=== PATIENT | male | born 1965 | race American Indian/Alaskan Native ===

== ENCOUNTER 2016-07-24 09:53 | Inpatient (IN) | payer OTHER ==
[2016-07-24] MEDS ORDERED: COMPAZINE IV ONE (11:18)
[2016-07-24] MEDS ORDERED: CATAPRES PO ONE (11:18)
[2016-07-24] MEDS ORDERED: DILAUDID IV ONE (11:18)
--- NOTE | 2016-07-24 11:21 | Emergency Department Report ---
- General Chief complaint: Weakness Stated complaint: WEAKNESS/DIZZINESS Time Seen by Provider: 07/24/16 10:58 Source: patient, EMS Mode of arrival: Stretcher Limitations: No Limitations - History of Present Illness Initial comments: This is a 51-year-old gentleman who describes essentially a one-month history of frequent headaches. He states they'll be in the posterior lower aspect of his skull. He reports nausea associated with this as well as some nausea and fatigue and weakness. He states it seems to correlate with high blood pressure. He has been compliant with his Tekturna. He states the typically his blood pressures in the 140 over 80s range. He states that when he has the headache he notices the blood pressure quite elevated. He actually took a myocarditis today due to the long pressure being elevated and headache pain. He denies any specific head trauma. She denies any focal neurologic difficulties. He denies any abdominal pain. He was seen by an emergency department in [place] for similar symptoms 2 weeks ago. He will did receive nausea and pain medicine with improvement of his condition. Hemodialysis is Monday. Complaint: generalized weakness -: Gradual Location: neck, other (head) Severity scale (0 -10): 2 Associated Symptoms: denies: chest pain, confusion, dark stools, fever/chills, headaches - Related Data Home Medications Medication Instructions Recorded Confirmed Last Taken Sevelamer Carbonate [Renvela] 800 mg PO TIDWM 07/24/16 07/24/16 Unknown Telmisartan [Micardis] 80 mg PO QDAY 07/24/16 07/24/16 Unknown Allergies Allergy/AdvReac Type Severity Reaction Status Date / Time No Known Allergies Allergy Verified 07/24/16 11:21 ED Review of Systems ROS: Stated complaint: WEAKNESS/DIZZINESS Other details as noted in HPI Comment: All other systems reviewed and negative Constitutional: weakness. denies: chills, fever Eyes: denies: eye pain, eye discharge, vision change ENT: denies: ear pain, throat pain Respiratory: denies: cough, shortness of breath, wheezing Cardiovascular: denies: chest pain, palpitations Endocrine: no symptoms reported Gastrointestinal: nausea. denies: abdominal pain, diarrhea Genitourinary: denies: urgency, dysuria Musculoskeletal: denies: back pain, joint swelling, arthralgia Skin: denies: rash, lesions Neurological: headache, weakness, other (dizziness). denies: numbness, paresthesias Psychiatric: denies: anxiety, depression Hematological/Lymphatic: denies: easy bleeding, easy bruising ED Past Medical Hx - Past Medical History Previous Medical History?: Yes Hx Hypertension: Yes Hx Renal Disease: Yes (RF HD MWF) Additional medical history: LUE HD access - Surgical History Past Surgical History?: Yes Additional Surgical History: Leftg Knee replacement 2010 - Social History Smoking Status: Never Smoker Substance Use Type: None - Medications Home Medications: Home Medications Medication Instructions Recorded Confirmed Last Taken Type Sevelamer Carbonate [Renvela] 800 mg PO TIDWM 07/24/16 07/24/16 Unknown History Telmisartan [Micardis] 80 mg PO QDAY 07/24/16 07/24/16 Unknown History ED Physical Exam - General Limitations: No Limitations General appearance: alert, in no apparent distress - Head Head exam: Present: atraumatic, normocephalic, normal inspection - Eye Eye exam: Present: normal appearance, EOMI, other (2 mm pupils bilaterally they are reactive.) - ENT ENT exam: Present: normal exam, normal orophraynx, mucous membranes moist - Neck Neck exam: Present: tenderness (L paracervical aspect to trapezius. No midline tenderness). Absent: meningismus, full ROM, lymphadenopathy, thyromegaly - Respiratory Respiratory exam: Present: normal lung sounds bilaterally. Absent: respiratory distress, wheezes, rales - Cardiovascular Cardiovascular Exam: Present: regular rate, normal rhythm. Absent: systolic murmur, diastolic murmur, rubs, gallop - GI/Abdominal GI/Abdominal exam: Present: soft, normal bowel sounds. Absent: tenderness, guarding - Rectal Rectal exam: Present: deferred - Extremities Exam Extremities exam: Present: normal inspection, full ROM. Absent: tenderness - Back Exam Back exam: Present: normal inspection, full ROM, tenderness - Neurological Exam Neurological exam: Present: alert, oriented X3, CN II-XII intact. Absent: motor sensory deficit - Psychiatric Psychiatric exam: Present: normal affect, normal mood - Skin Skin exam: Present: warm, dry, intact, normal color. Absent: rash ED Course Vital Signs 07/24/16 07/24/16 07/24/16 10:12 10:22 10:30 Temperature Pulse Rate 90 Respiratory 11 L 24 Rate Blood Pressure 125/86 Blood Pressure 125/86 [Right] O2 Sat by Pulse 97 98 97 Oximetry 07/24/16 07/24/16 07/24/16 11:00 11:30 12:00 Temperature Pulse Rate 82 Respiratory 19 17 12 Rate Blood Pressure 172/95 156/93 142/91 Blood Pressure [Right] O2 Sat by Pulse 93 92 98 Oximetry 07/24/16 07/24/16 07/24/16 12:15 12:31 12:45 Temperature Pulse Rate 112 H 105 H 115 H Respiratory 25 H 17 16 Rate Blood Pressure 142/91 182/84 179/85 Blood Pressure [Right] O2 Sat by Pulse 100 99 Oximetry 07/24/16 07/24/16 07/24/16 13:01 13:05 13:15 Temperature Pulse Rate 107 H 101 H 106 H Respiratory 13 21 Rate Blood Pressure 201/100 201/100 215/104 Blood Pressure [Right] O2 Sat by Pulse 100 98 Oximetry 07/24/16 07/24/16 07/24/16 13:30 13:45 14:00 Temperature Pulse Rate 107 H 104 H 103 H Respiratory 15 15 18 Rate Blood Pressure 165/81 186/97 174/95 Blood Pressure [Right] O2 Sat by Pulse 100 98 99 Oximetry 07/24/16 07/24/16 07/24/16 14:15 14:31 14:52 Temperature Pulse Rate 114 H 113 H 111 H Respiratory 22 24 11 L Rate Blood Pressure 174/95 209/94 209/94 Blood Pressure [Right] O2 Sat by Pulse 90 88 Oximetry 07/24/16 07/24/16 07/24/16 15:00 15:15 15:30 Temperature Pulse Rate Respiratory 17 17 19 Rate Blood Pressure 136/98 151/79 151/79 Blood Pressure [Right] O2 Sat by Pulse 85 96 100 Oximetry 07/24/16 07/24/16 07/24/16 16:11 16:15 16:32 Temperature 100 F H Pulse Rate 110 H 126 H Respiratory 29 H Rate Blood Pressure 190/92 190/92 Blood Pressure [Right] O2 Sat by Pulse 98 96 Oximetry 07/24/16 07/24/16 07/24/16 17:01 18:01 18:39 Temperature 98.5 F Pulse Rate Respiratory Rate Blood Pressure 190/92 156/88 Blood Pressure [Right] O2 Sat by Pulse 96 96 Oximetry - Reevaluation(s) Reevaluation #1: 07/24/16 11:25 Patient is intact neurologically here. Blood pressure is noted to be modestly elevated at 170 over 90s. Etiology of headache seems more likely to be inserted in nature in my opinion. I suspect the blood pressure secondary to pain. We'll give the patient some pain medication as well as check some baseline labs and observed here for brief period of time. Reevaluation #2: 07/24/16 11:50 ECG 1141 demonstrate a normal sinus rhythm at 80 bpm with a normal GA. Isoelectric noted. No acute ST elevation or depression is appreciated. Reevaluation #3: 07/24/16 18:46 This is a patient that I did not anticipate having his much difficulty as I have with. He continues to have challenging headache. He does have a disease/ nausea component to his headache as well. In brief I did provide him IV medications for his headache. I felt controlling the headache would control much of his Lopressor issues well. Patient was given Dilaudid as well as Compazine for his nausea. Patient is a side effect did develop akathisia. I did give him Benadryl post complication. He still remained fairly agitated. I gave Zofran to speak Valium at that time with improvement of the akathisia. Patient still continues to endorse headache. Did offer her other medications she is very reluctant this time to take them due to its adverse reaction with the Compazine. Patient is able to stand up she does slowly walk around the room as well. He is neurologically intact. Moving all extremities appropriately. Does not have an obvious nystagmus at this time. CT brain was obtained demonstrating no acute pathology. Patient did have a bowel movement here with improvement of some gaseous distention he was having. Temperature was noted to be 100.0 several hours after my initial evaluation. In light of his presentation did Biddle depositing consider meningitis. I really have a low suspicion of this but I do not have an alternative diagnosis. CRP is noted to be 5 lactate is 2.1. I'm reluctant at this time to do a lumbar puncture. I feel this is unlikely to give me the etiology of his discomfort. I did speak with Dr. Harris from the hospitalist service regarding admission for continued evaluation and further care. He is comfortable and agreeable with this. ED Medical Decision Making - Lab Data Result diagrams: 07/24/16 11:24 07/24/16 11:24 - Radiology Data Radiology results: report reviewed, image reviewed interpreted by me: CT brain Negative for acute pathology. Critical care attestation.: If time is entered above; I have spent that time in minutes in the direct care of this critically ill patient, excluding procedure time. ED Disposition Clinical Impression: End stage renal disease, Dizziness Headache Qualifiers: Headache type: tension-type Headache chronicity pattern: acute headache Intractability: intractable Qualified Code(s): G44.201 - Tension-type headache, unspecified, intractable HTN (hypertension) Qualifiers: Hypertension type: renovascular hypertension Qualified Code(s): I15.0 - Renovascular hypertension Disposition: OP ADMITTED IP TO THIS HOSP Is pt being admited?: Yes Does the pt Need Aspirin: No Condition: Stable Instructions: Hypertension (ED) Referrals: PRIMARY CARE, [Primary Care Provider] - 3-5 Days Time of Disposition: 16:34
[2016-07-24 11:43] LABS: Basophils % (Auto) 0.4 % (0.0-1.8); Eosinophils % (Auto) 1.5 % (0.0-4.3); Hematocrit 31.9 % (35.5-45.6); Hemoglobin 10.3 gm/dl (11.8-15.2); Mean Corpuscular HGB Conc 32 % (32-34); Mean Corpuscular Hemoglobin 30 pg (28-32); Mean Corpuscular Volume 92 fl (84-94); Platelet Count 196 K/mm3 (140-440); Red Blood Count 3.47 M/mm3 (3.65-5.03); Red Cell Distribution Width 17.1 % (13.2-15.2); White Blood Count 12.2 K/mm3 (4.5-11.0)
[2016-07-24 11:55] LABS: BUN/Creatinine Ratio 4.77; Calcium 8.3 mg/dL (8.4-10.2); Chloride 90.5 mmol/L (98-107)
[2016-07-24] MEDS ORDERED: BENADRYL IV ONE (13:16)
[2016-07-24] MEDS ORDERED: VALIUM IV ONE (14:38)
[2016-07-24] MEDS ORDERED: ULTRAM PO ONE (14:38)
[2016-07-24] MEDS ORDERED: APRESOLINE PO ONE (14:38)
[2016-07-24] MEDS ORDERED: TYLENOL PO ONE (16:44)
--- NOTE | 2016-07-24 17:48 | Cat Scan Report ---
FINAL REPORT EXAM: CT HEAD/BRAIN WO CON HISTORY: headache TECHNIQUE: CT imaging acquired through the head without intravenous contrast. Transaxial reformations are provided. PRIORS: None. FINDINGS: The ventricles, cisterns and sulci are normal. No intraparenchymal or extra-axial mass, hemorrhage, or mass effect. De [place] and white-matter differentiation is within normal limits. Normal spherical shape of the globes. Paranasal sinuses and mastoid air cells are clear. No skull or facial fracture visualized. IMPRESSION: No acute intracranial abnormality. Consider follow-up MRI as warranted.
[2016-07-24] MEDS ORDERED: APRESOLINE ONE (19:20)
[2016-07-24] MEDS ORDERED: DILAUDID ONE (19:29)
[2016-07-24] MEDS ORDERED: APRESOLINE IV PRN (19:29)
[2016-07-24] MEDS: DILAUDID IV PRN (19:38)
--- NOTE | 2016-07-24 20:11 | History and Physical Report ---
History of Present Illness Date of examination: 07/24/16 Date of admission: 07/24/16 18:41 Chief complaint: Severe H/A for one week. History of present illness: 51 y/o AAM with hx of ESRD and HTn comes in for severe H/A on and off for one month.Also feels gen weakness.Goes for HD to [place] even though he is a resident of [place].In ER after compazine becomes altered sensorium.Also fever of 101.No SOB or chest pain.His H/A us [place] and associated with high BP.Nausea present.No blurresd vision etc.Only on Telmisartan 80 mg po qd Past History Past Medical History: ESRD, hypertension Past Surgical History: Other (AV fistula) Social history: no significant social history, lives with family Family history: hypertension Medications and Allergies Allergies Allergy/AdvReac Type Severity Reaction Status Date / Time prochlorperazine Allergy Unknown Verified 07/24/16 19:59 [From Compazine] prochlorperazine edisylate Allergy Unknown Verified 07/24/16 19:59 [From Compazine] prochlorperazine maleate Allergy Unknown Verified 07/24/16 19:59 [From Compazine] Home Medications Medication Instructions Recorded Confirmed Last Taken Type Sevelamer Carbonate [Renvela] 800 mg PO TIDWM 07/24/16 07/24/16 Unknown History Telmisartan [Micardis] 80 mg PO QDAY 07/24/16 07/24/16 Unknown History Active Meds: Active Medications Hydralazine HCl (Apresoline) 10 mg IV Q2H PRN PRN Reason: Blood Pressure Last Admin: 07/24/16 19:23 Dose: 10 mg Hydromorphone HCl (Dilaudid) 0.5 mg IV Q3H PRN PRN Reason: Pain , Severe (7-10) Last Admin: 07/24/16 19:38 Dose: 0.5 mg Review of Systems All systems: negative Ears, nose, mouth and throat: no dysphagia, no hoarseness, no sore throat Cardiovascular: no chest pain, no orthopnea, no palpitations, no rapid/ irregular heart beat, no syncope, no shortness of breath Respiratory: dyspnea on exertion, no congestion, no wheezing Gastrointestinal: no nausea, no vomiting, no diarrhea Genitourinary Male: no dysuria, no hematuria, no flank pain, no discharge Musculoskeletal: no neck stiffness, no neck pain Integumentary: no rash, no pruritis, no redness, no sores Neurological: no seizures, no syncope Psychiatric: no anxiety, no depression Endocrine: no cold intolerance, no heat intolerance, no polyphagia, no excessive thirst, no polydipsia Hematologic/Lymphatic: no easy bruising, no easy bleeding Allergic/Immunologic: no urticaria, no allergic rhinitis, no wheezing Exam - Physical Exam Narrative exam: WD WN male sitting in bed-alert and oriented - Constitutional Vitals: Temp Pulse Resp BP Pulse Ox 98.5 F 100 H 14 157/85 97 07/24/16 18:39 07/24/16 19:53 07/24/16 19:30 07/24/16 19:53 07/24/16 19:30 General appearance: Present: no acute distress, well-nourished - EENT Eyes: Present: PERRL ENT: hearing intact, clear oral mucosa - Neck Neck: Present: supple, normal ROM - Respiratory Respiratory effort: normal Respiratory: bilateral: CTA - Cardiovascular Heart rate: 80 Rhythm: regular Heart Sounds: Present: S1 & S2. Absent: rub, click - Extremities Extremities: pulses symmetrical, No edema Peripheral Pulses: within normal limits - Abdominal General gastrointestinal: Present: soft, non-tender, non-distended, normal bowel sounds Male genitourinary: Present: normal - Integumentary Integumentary: Present: clear, warm, dry - Musculoskeletal Musculoskeletal: gait normal, strength equal bilaterally - Psychiatric Psychiatric: appropriate mood/affect, intact judgment & insight - Neurologic Neurologic: CNII-XII intact, moves all extremities - Allied Health Allied health notes reviewed: nursing, case management Results - Labs CBC & Chem 7: 07/24/16 11:24 07/24/16 11:24 Labs: Laboratory Last Values WBC 12.2 K/mm3 (4.5-11.0) H 07/24/16 11:24 RBC 3.47 M/mm3 (3.65-5.03) L 07/24/16 11:24 Hgb 10.3 gm/dl (11.8-15.2) L 07/24/16 11:24 Hct 31.9 % (35.5-45.6) L 07/24/16 11:24 MCV 92 fl (84-94) 07/24/16 11:24 MCH 30 pg (28-32) 07/24/16 11:24 MCHC 32 % (32-34) 07/24/16 11:24 RDW 17.1 % (13.2-15.2) H 07/24/16 11:24 Plt Count 196 K/mm3 (140-440) 07/24/16 11:24 Lymph % (Auto) 12.2 % (13.4-35.0) L 07/24/16 11:24 [place] % (Auto) 5.5 % (0.0-7.3) 07/24/16 11:24 Eos % (Auto) 1.5 % (0.0-4.3) 07/24/16 11:24 Baso % (Auto) 0.4 % (0.0-1.8) 07/24/16 11:24 Lymph # 1.5 K/mm3 (1.2-5.4) 07/24/16 11:24 [place]he # 0.7 K/mm3 (0.0-0.8) 07/24/16 11:24 Eos # 0.2 K/mm3 (0.0-0.4) 07/24/16 11:24 Baso # 0.1 K/mm3 (0.0-0.1) 07/24/16 11:24 Seg Neutrophils % 80.4 % (40.0-70.0) H 07/24/16 11:24 Seg Neutrophils # 9.8 K/mm3 (1.8-7.7) H 07/24/16 11:24 Sodium 136 mmol/L (137-145) L 07/24/16 11:24 Potassium 4.0 mmol/L (3.6-5.0) 07/24/16 11:24 Chloride 90.5 mmol/L (98-107) L 07/24/16 11:24 Carbon Dioxide 30 mmol/L (22-30) 07/24/16 11:24 Anion Gap 20 mmol/L 07/24/16 11:24 BUN 52 mg/dL (9-20) H 07/24/16 11:24 Creatinine 10.9 mg/dL (0.8-1.5) H 07/24/16 11:24 Estimated GFR 6 ml/min 07/24/16 11:24 BUN/Creatinine Ratio 4.77 % 07/24/16 11:24 Glucose 99 mg/dL (75-100) 07/24/16 11:24 Lactic Acid 2.1 mmol/L (0.7-2.0) H* 07/24/16 17:02 Calcium 8.3 mg/dL (8.4-10.2) L 07/24/16 11:24 C-Reactive Protein 5.20 mg/dL (0.00-1.30) H 07/24/16 17:03 Short CBC 07/24/16 Range/Units 11:24 WBC 12.2 H (4.5-11.0) K/mm3 Hgb 10.3 L (11.8-15.2) gm/dl Hct 31.9 L (35.5-45.6) % Plt Count 196 (140-440) K/mm3 BMP 07/24/16 11:24 Sodium 136 L Potassium 4.0 Chloride 90.5 L Carbon Dioxide 30 BUN 52 H Creatinine 10.9 H Glucose 99 Calcium 8.3 L - Imaging and Cardiology EKG: report reviewed Assessment and Plan Advance Directives: Yes (Full code) - Patient Problems (1) Hypertensive emergency Current Visit: Yes Status: Acute Plan to address problem: Added Hydralazine 50mg po Q8 and coreg 12.5 po q12.Being given Hydralazine prn (2) End stage renal disease Current Visit: Yes Status: Chronic Plan to address problem: Needs to change his Dialysis center to [facility] as he drives about 20 miles to [place].Will discuss with Nephrology.Also advised compliance. (3) Altered mental status Current Visit: Yes Status: Acute Qualifiers: Altered mental status type: disorientation Coma depth: C Coma timing: C Qualified Code(s): R41.0 - Disorientation, unspecified Plan to address problem: Sec to compazine (4) Fever Current Visit: Yes Status: Acute Qualifiers: Fever type: F Encounter type: initial encounter Qualified Code(s): T88.3XXA - Malignant hyperthermia due to anesthesia, initial encounter Plan to address problem: One episode.Will observe.No focus of infection. (5) DVT prophylaxis Current Visit: Yes Status: Acute Plan to address problem: on Heparin
[2016-07-24] MEDS ORDERED: NON-FORMULARY (Telmisartan [Micardis] 80 MG) PO SCH (20:15)
[2016-07-24] MEDS: COZAAR PO SCH (21:24)
[2016-07-24] MEDS: APRESOLINE PO SCH (23:11)
[2016-07-25] MEDS: DILAUDID IV PRN (03:51)
[2016-07-25] MEDS ORDERED: TYLENOL PO PRN (04:36)
[2016-07-25] MEDS: APRESOLINE PO SCH ×3 (05:05→22:21)
--- NOTE | 2016-07-25 07:39 | Consultation ---
History of Present Illness - Reason for Consult Consult date: 07/25/16 end stage renal disease, accelerated hypertension - History of Present Illness Patient is a 51-year-old AAM with history significant for Morbid Obesity, Hypertension and ESRD on hemodialysis (MWF) came to the hospital with generalized weakness, nausea and headache. Patient has had KLINE since May 2016, the pain is constant with waxing and waning but progressive and located in the posterior lower aspect of his skull. He reports nausea, fatigue, generalized weakness and dizziness. He claims that his BP is fairly well controlled. Patient drives to [place] for hemodialysis. He was last dialyzed 3 days ago. No h/o vomiting, abd pain, diarrhea, dizziness, fever, rash, cp, palpitation, syncope or blurry vision. Past History Past Medical History: ESRD, hypertension, renal failure Past Surgical History: Other (AV fistula placement) Social history: denies: smoking, alcohol abuse, IV drug use Medications and Allergies Allergies Allergy/AdvReac Type Severity Reaction Status Date / Time prochlorperazine Allergy Unknown Verified 07/24/16 19:59 [From Compazine] prochlorperazine edisylate Allergy Unknown Verified 07/24/16 19:59 [From Compazine] prochlorperazine maleate Allergy Unknown Verified 07/24/16 19:59 [From Compazine] Home Medications Medication Instructions Recorded Confirmed Last Taken Type Sevelamer Carbonate [Renvela] 800 mg PO TIDWM 07/24/16 07/24/16 Unknown History Telmisartan [Micardis] 80 mg PO QDAY 07/24/16 07/24/16 Unknown History Active Meds: Active Medications Acetaminophen (Tylenol) 650 mg PO Q6H PRN PRN Reason: Pain, Mild (1-3) Last Admin: 07/25/16 05:04 Dose: 650 mg Hydralazine HCl (Apresoline) 10 mg IV Q2H PRN PRN Reason: Blood Pressure Last Admin: 07/24/16 19:23 Dose: 10 mg Hydralazine HCl (Apresoline) 50 mg PO Q8HR ALFONZO Last Admin: 07/25/16 05:05 Dose: 50 mg Hydromorphone HCl (Dilaudid) 0.5 mg IV Q3H PRN PRN Reason: Pain , Severe (7-10) Last Admin: 07/25/16 03:51 Dose: 0.5 mg Losartan Potassium (Cozaar) 100 mg PO QDAY [facility] Last Admin: 07/24/16 21:24 Dose: 100 mg Sevelamer Carbonate (Renvela) 800 mg PO TIDWM [facility] Review of Systems Constitutional: fatigue, weakness, no weight loss, no weight gain, no fever, no chills, no anorexia, no poor appetite Ears, nose, mouth and throat: no sinus pressure, no sinus pain, no epistaxis Cardiovascular: lightheadedness, high blood pressure, leg edema, no chest pain, no shortness of breath, no dyspnea on exertion Respiratory: no cough, no hemoptysis, no shortness of breath, no dyspnea on exertion Gastrointestinal: nausea, no abdominal pain, no vomiting, no melena Genitourinary Male: no dysuria, no hematuria Rectal: no bleeding Musculoskeletal: neck pain Integumentary: no rash, no boils Neurological: weakness, vertigo, headaches, no paralysis, no numbness, no seizures, no syncope, no change in speech, no change in mentation, no confusion Psychiatric: no memory loss Hematologic/Lymphatic: no easy bleeding Allergic/Immunologic: no anaphylaxis Exam - Vital Signs Vital signs: Vital Signs Pulse Ox 97 07/24/16 10:12 - General Appearance General appearance: well-developed, well-nourished, appears stated age, obese, other (no distress) EENT: ATNC, PERRL, mucous membranes moist, hearing intact, vision intact Neck: Present: trachea midline Respiratory: Rales Heart: regular, S1S2, no murmurs Gastrointestinal: Present: normoactive bowel sounds, obese. Absent: tenderness , distended Integumentary: no rash, warm and dry Neurologic: no focal deficit, no asterixis, alert and oriented x3, CN 3-12 intact Musculoskeletal: Present: other (trace pedal edema, left arm AVF) Psychiatric: mood/affect appropriate, cooperative Results - Lab Results 07/24/16 11:24 07/24/16 11:24 Most recent lab results Calcium 8.3 mg/dL (8.4-10.2) L 07/24/16 11:24 Assessment and Plan - Patient Problems (1) End stage renal disease Current Visit: Yes Status: Chronic Plan to address problem: Continue hemodialysis on MWFs. (2) HTN (hypertension) Current Visit: Yes Status: Chronic Qualifiers: Hypertension type: renovascular hypertension Qualified Code(s): I15.0 - Renovascular hypertension Plan to address problem: BP well controlled. (3) Headache Current Visit: Yes Status: Acute Qualifiers: Headache type: tension-type Headache chronicity pattern: acute headache Intractability: intractable Qualified Code(s): G44.201 - Tension-type headache , unspecified, intractable Plan to address problem: Evaluated by Neuro. (4) Anemia of renal disease Current Visit: Yes Status: Chronic Plan to address problem: Epogen prn.
[2016-07-25] MEDS: RENVELA PO SCH ×2 (08:33→12:00)
[2016-07-25] MEDS ORDERED: NACL 0.9% 100 ML IV PRN (11:24)
--- NOTE | 2016-07-25 11:29 | Consultation ---
History of Present Illness Consult date: 07/25/16 Requesting physician: GUS CAN Reason for Consult: KLINE Chief complaint: headache History of present illness: 51 YO M hx ESRD and HTN p/w KLINE since 07/24 9 AM. KLINE is located in the base of the neck w/ squeezing achy pain. He has had similar KLINE since May 2016. Duration of pain is constant waxing and waning but progressive although improved today. Pain is worsened by activity and sounds/light and relieved by rest. He affirms N. There are no clear temporal factors beyond HTN up to SBP 190s on admit. Severity is such to limit comfort. Past History Past Medical History: ESRD, hypertension Past Surgical History: Other (AV fistula) Social history: no significant social history, lives with family Family history: hypertension Medications and Allergies Allergies Allergy/AdvReac Type Severity Reaction Status Date / Time prochlorperazine Allergy Unknown Verified 07/24/16 19:59 [From Compazine] prochlorperazine edisylate Allergy Unknown Verified 07/24/16 19:59 [From Compazine] prochlorperazine maleate Allergy Unknown Verified 07/24/16 19:59 [From Compazine] Home Medications Medication Instructions Recorded Confirmed Last Taken Type Sevelamer Carbonate [Renvela] 800 mg PO TIDWM 07/24/16 07/24/16 Unknown History Telmisartan [Micardis] 80 mg PO QDAY 07/24/16 07/24/16 Unknown History Active Meds: Active Medications Acetaminophen (Tylenol) 650 mg PO Q6H PRN PRN Reason: Pain, Mild (1-3) Last Admin: 07/25/16 05:04 Dose: 650 mg Azithromycin (Zithromax) 250 mg PO QDAY ALFONZO Fluticasone Propionate (Flonase) 100 mcg NS QDAY ALFONZO Hydralazine HCl (Apresoline) 10 mg IV Q2H PRN PRN Reason: Blood Pressure Last Admin: 07/24/16 19:23 Dose: 10 mg Hydralazine HCl (Apresoline) 50 mg PO Q8HR ALFONZO Last Admin: 07/25/16 05:05 Dose: 50 mg Hydromorphone HCl (Dilaudid) 0.5 mg IV Q3H PRN PRN Reason: Pain , Severe (7-10) Last Admin: 07/25/16 03:51 Dose: 0.5 mg Losartan Potassium (Cozaar) 100 mg PO QDAY [facility] Last Admin: 07/24/16 21:24 Dose: 100 mg Sevelamer Carbonate (Renvela) 800 mg PO TIDWM [facility] Last Admin: 07/25/16 08:33 Dose: 800 mg Review of Systems Constitutional: weight gain, fatigue, weakness, chronic headaches, daytime sleepiness, no fever Neurological: weakness, headaches, no head injury, no paralysis, no parathesias , no numbness, no tingling, no seizures, no syncope, no lack of coordination, no vertigo, no migraines, no convulsions, no change in speech, no change in mentation, no confusion, no memory loss, no balance difficulties, no gait dysfunction, no motor disturbance, no sensory deficit, no loss of vision Physical Examination - Vital Signs Vital Signs: Vital Signs Pulse Ox 97 07/24/16 10:12 - EENT EENT: Present: ATNC, PERRL, mucous membranes moist, hearing intact, vision intact - Respiratory Respiratory: Present: chest non-tender, normal breath sounds, no respiratory distress - Cardiovascular Cardiovascular: Present: regular rate Extremities: Present: no peripheral edema bilatateraly, no clubbing, cyanosis, no inflammation, no ischemia or petechiae - Gastrointestinal Gastrointestinal: Present: normoactive bowel sounds, soft, non-distended - Integumentary Integumentary: Present: normal - Neurologic Cranial nerve examination: PERRL, EOMI, VFF, V1/V2/V3 grossly intact, face symmetric, tongue midline, intact, intact shoulder shrug, intact cough reflex, Intact Vestibulo-ocular r, intact corneal reflex, facial droop, normal palatal elevation Speech examination: intact Sensorimotor examination: intact Detailed motor examination: full strength in all lauren Motor examination - right side: 55: biceps, triceps, wrist flexion, wrist extension, bingo caller, hip flexors, knee extensors, dorsiflexion, toe extension (EHL) , plantarflexion Motor examination - left side: 55: biceps, triceps, wrist flexion, wrist extension, bingo caller, hip flexors, knee extensors, dorsiflexion, toe extension (EHL) , plantarflexion Detailed sensory examination: intact, light touch, temperature Reflex and gait examination: intact Reflexes: 1+: ankle, 2+: bicep, knee, tricep - Musculoskeletal Musculoskeletal: Present: no fluid collection, no pain, normal range of motion - Psychiatric Psychiatric: Present: mood/affect appropriate, cooperative Results - Laboratory Findings CBC and BMP: 07/24/16 11:24 07/24/16 11:24 Assessment and Plan 51 YO M hx ESRD and HTN p/w 1 day of base of neck mixed pressure/pulsatile KLINE assoc w/ N/photo/sonophobia and marked HTN up to SBP 190s. Sx have been relieved w/ tylenol and BP control. There are no other migrainous or meningeal signs/sx otherwise. Neuro exam nonfocal intact w/o deficits. I suspect HTN emergency causing secondary KLINE w/ possibly some migrainous component as well. CTH neg. habitus 350lbs precludes inpatient MRI and pt improving Plan and Recommendations: 1. Neuro checks 2. Analgesia PRN: Toradol 15-30mg IV Q4-6hrs prn if cleared by Nephro and Fioricet 1-2 tabs Q4-6hrs prn 3. Reduce MAPs by 10-15% daily to achieve normotension 4. We can revisit as needed
--- NOTE | 2016-07-25 11:40 | Admit Criteria Form ---
Admission Criteria Documentation: HEADACHES Clinical Indications for Admission to Inpatient Care (Place 'X' for any and all applicable criteria): Admission is indicated for ANY ONE of the following(1)(2)(3)(4): [X]I. Inpatient admission required rather than observational care (Also use Headaches: Observation Care as appropriate) because of ANY ONE of the following: [ ]a) Severe pain requiring acute inpatient management [ ]b) Altered mental status that is severe or persistent [ ]c) Vomiting or dehydration that is severe or persistent [ ]d) New-onset focal neurologic deficit that is severe or persistent [X]e) Hypertension requiring inpatient treatment [ ]f) Severe (new) neurologic findings requiring inpatient care as indicated by ANY ONE of following(9)(10): [ ]1) Papilledema [ ]2) Cerebral edema [ ]3) Mass effect on CT scan [ ]4) Cerebral bleeding, ischemia, or vasospasm(16) [ ]5) Hydrocephalus(17) [ ]6) Uncontrolled seizures [ ]g) IV infusion of anticoagulation, platelet inhibitors vasoactive, or antiarrhythmic medication. [ ]h) Cerebral bleeding, hydrocephalus, or vasospasm monitoring (16) [ ]i) Increased intracranial pressure or cerebral edema monitoring (17) [ ]j) Other condition, treatment or monitoring requiring inpatient admission [ ]II. Unruptured but threatening aneurysm or vascular malformation [ ]III. Venous sinus thrombosis [ ]IV. Increased intracranial pressure [ ]V. Cerebral spinal fluid leak with decreased intracranial pressure [ ]. Medication-overuse headache that has failed all outpatient management options [ ]VII. Vasculitis (eg, giant cell (temporal) arteritis, central nervous system vasculitis) requiring IV corticosteroids, IV antithrombotic therapy, or inpatient monitoring (eg, visual symptoms or findings, other ischemic manifestations)[A](10)(11) Extended stay beyond goal length of stay may be needed for (27): [ ]a) Intractable migraine [ ]b) Subarachnoid or intracranial hemorrhage [ ]c) Malignant hypertension [ ]d) Detoxification from drug withdrawal in medication-overuse headache (29) The original [facility] [employer] content created by [facility] [employer] has been revised. The portions of the content which have been revised are identified through the use of italic text or in bold, and [employer] has neither reviewed nor approved the modified material.All other unmodified content is copyright [facility]. Please see references footnoted in the original [facility] edition 2016 Admission Criteria Met: Yes
[2016-07-25] MEDS: ZITHROMAX PO SCH (11:59)
[2016-07-25] MEDS: FLONASE NS SCH (12:14)
--- NOTE | 2016-07-25 13:00 | Progress Note ---
Assessment and Plan Assessment and plan: 51 y/o AAM with hx of ESRD and HTn comes in for severe H/A on and off for one month.Also feels gen weakness. Goes for HD to [place] even though he is a resident of [place]. In ER after compazine becomes altered sensorium. Also fever of 101. No SOB or chest pain. His H/A us usually occipital and associated with high BP. Nausea present. No blurresd vision etc. Only on Telmisartan 80 mg po qd. Blood pressure on admission was noted to be systolic in the 190s. He is improved today with Tylenol and BP control. Did have elevated lactates which has also improved with fluids. habitus 350lbs precludes inpatient MRI and pt improving Patient Problems (1) Hypertensive emergency Current Visit: Yes Status: Acute Plan to address problem: Blood pressure improving. We'll continue neuro checks. Continue 50mg po Q8 and coreg 12.5 po q12.Being given Hydralazine prn. Weight loss modalities discussed in detail with the patient. (2) End stage renal disease Current Visit: Yes Status: Chronic Plan to address problem: Nephrology follow and continue dialysis. (3) acute metabolic encephalopathy Current Visit: Yes Status: Acute Qualifiers: Altered mental status type: disorientation Coma depth: C Coma timing: C Qualified Code(s): R41.0 - Disorientation, unspecified Plan to address problem: Sec to compazine. Discontinue (4) Fever Current Visit: Yes Status: Acute Qualifiers: Fever type: F Encounter type: initial encounter Qualified Code(s): T88.3XXA - Malignant hyperthermia due to anesthesia, initial encounter Plan to address problem: One episode.no other recurrence. Possibly secondary to acute sinusitis. Will start patient Flonase some oral antibiotics. No evidence of sepsis elevated lactic acidosis has resolved. (5) morbid obesity BMI 49.3 again weight loss modalities discussed in detail patient verbalized understanding. (6)DVT prophylaxis Current Visit: Yes Status: Acute Plan to address problem: on Heparin Disposition Physical discharge in a.m. Case discussed with patient and also with mother who was in the room also. History Interval history: Patient seen and examined today in no acute distress. He reports some improvement. Denies any chest pain, nausea but reports rhinorrhea. The patient is has been happening for about a month and a half now. He denies any fever. He denies Blurry vision. Hospitalist Physical - Physical exam Narrative exam: VITAL SIGNS: Reviewed. GENERAL: The patient appeared well nourished and normally developed, morbidly obese. Vital signs as documented. HEAD: No signs of head trauma. EYES: Pupils are equal. Extraocular motions intact. EARS: Hearing grossly intact. MOUTH: Oropharynx is normal. NECK: No adenopathy, no JVD. CHEST: Chest with clear breath sounds bilaterally. No wheezes, rales, or rhonchi. CARDIAC: Regular rate and rhythm. S1 and S2, without murmurs, gallops, or rubs. VASCULAR: No Edema. Peripheral pulses normal and equal in all extremities. ABDOMEN: Soft, without detectable tenderness. No sign of distention. No rebound or guarding, and no masses palpated. Bowel Sounds normal. MUSCULOSKELETAL: Good range of motion of all major joints. Extremities without clubbing, cyanosis or edema. NEUROLOGIC EXAM: Alert and oriented x 3. No focal sensory or strength deficits. Speech normal. Follows commands. PSYCHIATRIC: Mood normal. SKIN: No rash or lesions. - Constitutional Vitals: Temp Pulse Resp BP Pulse Ox 98.2 F 100 H 16 147/80 98 07/25/16 08:00 07/25/16 08:00 07/25/16 10:00 07/25/16 08:00 07/25/16 08:00 General appearance: Present: no acute distress, well-nourished Results - Labs CBC & Chem 7: 07/24/16 11:24 07/24/16 11:24 Labs: Laboratory Last Values WBC 12.2 K/mm3 (4.5-11.0) H 07/24/16 11:24 RBC 3.47 M/mm3 (3.65-5.03) L 07/24/16 11:24 Hgb 10.3 gm/dl (11.8-15.2) L 07/24/16 11:24 Hct 31.9 % (35.5-45.6) L 07/24/16 11:24 MCV 92 fl (84-94) 07/24/16 11:24 MCH 30 pg (28-32) 07/24/16 11:24 MCHC 32 % (32-34) 07/24/16 11:24 RDW 17.1 % (13.2-15.2) H 07/24/16 11:24 Plt Count 196 K/mm3 (140-440) 07/24/16 11:24 Lymph % (Auto) 12.2 % (13.4-35.0) L 07/24/16 11:24 [place] % (Auto) 5.5 % (0.0-7.3) 07/24/16 11:24 Eos % (Auto) 1.5 % (0.0-4.3) 07/24/16 11:24 Baso % (Auto) 0.4 % (0.0-1.8) 07/24/16 11:24 Lymph # 1.5 K/mm3 (1.2-5.4) 07/24/16 11:24 [place] # 0.7 K/mm3 (0.0-0.8) 07/24/16 11:24 Eos # 0.2 K/mm3 (0.0-0.4) 07/24/16 11:24 Baso # 0.1 K/mm3 (0.0-0.1) 07/24/16 11:24 Seg Neutrophils % 80.4 % (40.0-70.0) H 07/24/16 11:24 Seg Neutrophils # 9.8 K/mm3 (1.8-7.7) H 07/24/16 11:24 Sodium 136 mmol/L (137-145) L 07/24/16 11:24 Potassium 4.0 mmol/L (3.6-5.0) 07/24/16 11:24 Chloride 90.5 mmol/L (98-107) L 07/24/16 11:24 Carbon Dioxide 30 mmol/L (22-30) 07/24/16 11:24 Anion Gap 20 mmol/L 07/24/16 11:24 BUN 52 mg/dL (9-20) H 07/24/16 11:24 Creatinine 10.9 mg/dL (0.8-1.5) H 07/24/16 11:24 Estimated GFR 6 ml/min 07/24/16 11:24 BUN/Creatinine Ratio 4.77 % 07/24/16 11:24 Glucose 99 mg/dL (75-100) 07/24/16 11:24 Lactic Acid 1.1 mmol/L (0.7-2.0) 07/25/16 08:24 Calcium 8.3 mg/dL (8.4-10.2) L 07/24/16 11:24 C-Reactive Protein 5.20 mg/dL (0.00-1.30) H 07/24/16 17:03 - Imaging and Cardiology CT Scan - head: image reviewed (are unremarkable CT brain)
[2016-07-25] MEDS: FIORICET PO PRN (15:49)
[2016-07-25] MEDS ORDERED: NACL 0.9 (PRIMING MACHINE ONLY DIALYSIS) MC ONE (17:23)
[2016-07-26] MEDS: APRESOLINE PO SCH ×2 (06:02→15:37)
[2016-07-26 06:24] LABS: Hematocrit 31.8 % (35.5-45.6); Hemoglobin 10.3 gm/dl (11.8-15.2); Mean Corpuscular HGB Conc 32 % (32-34); Mean Corpuscular Hemoglobin 30 pg (28-32); Mean Corpuscular Volume 93 fl (84-94); Platelet Count 194 K/mm3 (140-440); Red Blood Count 3.43 M/mm3 (3.65-5.03); Red Cell Distribution Width 16.9 % (13.2-15.2); White Blood Count 11.1 K/mm3 (4.5-11.0)
[2016-07-26 06:30] LABS: BUN/Creatinine Ratio 3.73; Calcium 8.7 mg/dL (8.4-10.2); Potassium 4.5 mmol/L (3.6-5.0)
--- NOTE | 2016-07-26 07:05 | Progress Note ---
Assessment and Plan - Patient Problems (1) End stage renal disease Current Visit: Yes Status: Chronic Plan to address problem: Continue hemodialysis on MWFs. Last dialyzed yesterday. (2) HTN (hypertension) Current Visit: Yes Status: Chronic Qualifiers: Hypertension type: renovascular hypertension Qualified Code(s): I15.0 - Renovascular hypertension Plan to address problem: BP well controlled. (3) Headache Current Visit: Yes Status: Acute Qualifiers: Headache type: tension-type Headache chronicity pattern: acute headache Intractability: intractable Qualified Code(s): G44.201 - Tension-type headache , unspecified, intractable Plan to address problem: Improved. (4) Anemia of renal disease Current Visit: Yes Status: Chronic Plan to address problem: Epogen prn. Subjective Date of service: 07/26/16 Interval history: Patient is feeling better. Objective - Vital Signs Vital signs: Vital Signs - 12hr 07/25/16 07/25/16 07/25/16 19:15 19:33 19:45 Temperature Pulse Rate 100 H 100 H 96 H Pulse Rate [ Right Radial] Respiratory Rate Blood Pressure 120/84 154/96 150/96 Blood Pressure [Right Arm] O2 Sat by Pulse Oximetry 07/25/16 07/25/16 07/25/16 20:00 20:15 20:35 Temperature Pulse Rate 92 H 96 H 96 H Pulse Rate [ Right Radial] Respiratory Rate Blood Pressure 144/88 140/92 156/94 Blood Pressure [Right Arm] O2 Sat by Pulse Oximetry 07/25/16 07/25/16 07/25/16 21:00 22:21 23:00 Temperature 99.3 F 98.7 F Pulse Rate 106 H Pulse Rate [ 106 H 105 H Right Radial] Respiratory 18 18 Rate Blood Pressure 110/80 Blood Pressure 142/86 126/55 [Right Arm] O2 Sat by Pulse 99 98 Oximetry 07/26/16 06:02 Temperature Pulse Rate Pulse Rate [ Right Radial] Respiratory Rate Blood Pressure 138/86 Blood Pressure [Right Arm] O2 Sat by Pulse Oximetry - General Appearance General appearance: well-developed, well-nourished, appears stated age, obese, other (no distress) EENT: ATNC, PERRL, mucous membranes moist, hearing intact, vision intact Neck: no carotid bruit, supple Respiratory: Present: Clear to Ascultation Cardiology: regular, S1S2, no murmurs Gastrointestinal: normoactive bowel sounds, no tenderness, no distended, no masses Integumentary: no rash Neurologic: no focal deficit, no asterixis, alert and oriented x3, CN 3-12 intact Musculoskeletal: other (trace pedal edema, left arm AVF) Psychiatric: mood/affect appropriate, cooperative - Lab 07/26/16 05:52 07/26/16 05:52 Most recent lab results Calcium 8.7 mg/dL (8.4-10.2) 07/26/16 05:52
--- NOTE | 2016-07-26 08:18 | Discharge Summary ---
Providers - Providers Date of Admission: 07/24/16 18:41 Date of discharge: 07/26/16 Attending physician: GUS CAN MD 07/24/16 23:43 Consult to Physician [CONS] Routine Consulting Provider: IAN FALCON Reason For Exam: ESRD Place consult to:: DR. FALCON Notified:: [facility] Phone number called:: [phone] Was contact made?: Yes If yes, spoke with:: Time called:: 08:40 Comment:: FRANKIE INGRAM 07/25/16 08:16 Consult to Physician [CONS] Routine Consulting Provider: KI STINSON Reason For Exam: intractable headache Place consult to:: DR. STINSON Notified:: DR. STINSON Phone number called:: [phone] Was contact made?: Yes If yes, spoke with:: DR. STINSON Time called:: 08:45 Comment:: FRANKIE NOTIFIED Primary care physician: [employer] Hospitalization Reason for admission: headache Condition: Stable Hospital course: 51 y/o AAM with hx of ESRD and HTn comes in for severe H/A on and off for one month.Also feels gen weakness. Goes for HD to [place] even though he is a resident of [place]. In ER after compazine becomes altered sensorium. Also fever of 101. No SOB or chest pain. His H/A us usually occipital and associated with high BP. Nausea present. No blurresd vision etc. Only on Telmisartan 80 mg po qd. Blood pressure on admission was noted to be systolic in the 190s. He is improved today with Tylenol and BP control. Did have elevated lactates which has also improved with fluids. habitus 350lbs precludes inpatient MRI and pt improving. On admission patient was seen by nephrology and neurologist. On further review neurology felt that this was possible migrainous headache. And recommended Toradol after Fioricet if okay with [facility]. The patient was started on Fioricet I also did an evaluation side the patient on Flonase and antibiotics for sinus infection as patient presented for rhinorrhea and fever. No evidence of sepsis is clinically stable at this point his headache is resolved blood pressure better controlled with did discuss weight management and also blood pressure control the patient reports understanding he will follow -up with his primary care physician he will keep it blood pressure diary condition at this time is stable Discharge diagnoses (1) Hypertensive emergency (2) End stage renal disease (3) acute metabolic encephalopathy (4) Fever (5) morbid obesity Disposition: DISCHARGED TO HOME OR SELFCARE Time spent for discharge: 35 mins Core Measure Documentation - Palliative Care Palliative Care/ Comfort Measures: Not Applicable - Core Measures Any of the following diagnoses?: none - VTE Discharge Requirements Deep Vein Thrombosis/Pulmonary Embolism Present on Admission: No Exam - Physical Exam Narrative exam: VITAL SIGNS: Reviewed. GENERAL: The patient appeared well nourished and normally developed, morbidly obese. Vital signs as documented. HEAD: No signs of head trauma. EYES: Pupils are equal. Extraocular motions intact. EARS: Hearing grossly intact. MOUTH: Oropharynx is normal. NECK: No adenopathy, no JVD. CHEST: Chest with clear breath sounds bilaterally. No wheezes, rales, or rhonchi. CARDIAC: Regular rate and rhythm. S1 and S2, without murmurs, gallops, or rubs. VASCULAR: No Edema. Peripheral pulses normal and equal in all extremities. ABDOMEN: Soft, without detectable tenderness. No sign of distention. No rebound or guarding, and no masses palpated. Bowel Sounds normal. MUSCULOSKELETAL: Good range of motion of all major joints. Extremities without clubbing, cyanosis or edema. NEUROLOGIC EXAM: Alert and oriented x 3. No focal sensory or strength deficits. Speech normal. Follows commands. PSYCHIATRIC: Mood normal. SKIN: AV access - Constitutional Vitals: Temp Pulse Resp BP Pulse Ox 98.7 F 105 H 18 138/86 98 07/25/16 23:00 07/25/16 23:00 07/25/16 23:00 07/26/16 06:02 07/25/16 23:00 Plan Activity: advance as tolerated Diet: renal Special Instructions: record daily BP diary, record blood sugar diary Additional Instructions: follow with [facility] and planned dialysis days Follow up with: PRIMARY CAREMD [Primary Care Provider] - 3-5 Days Prescriptions: Azithromycin [Zithromax TAB] 250 mg PO QDAY #7 tablet Butalb/Acetamin/Caff 50-325-40 [Fioricet] 2 tab PO Q4H PRN #14 tablet PRN Reason: Headache Fluticasone [Flonase] 100 mcg NS QDAY #1 bottle hydrALAZINE [Apresoline TAB] 50 mg PO Q8HR #30 tablet
[2016-07-26] MEDS: RENVELA PO SCH ×3 (09:06→18:25)
[2016-07-26] MEDS: FLONASE NS SCH (11:05)
[2016-07-26] MEDS: COZAAR PO SCH (11:07)
[2016-07-26] MEDS: ZITHROMAX PO SCH (11:07)
[2016-07-26] MEDS: FIORICET PO PRN (15:36)
[2016-07-26 15:38] VITALS: BP 174/91
[2016-07-26] MEDS ORDERED: ZOFRAN PO ONE (18:18)
== END 2016-07-26 20:40 | disposition home or self-care (01) | DRG 682 ==
LOC: ED 09:53 → 3A 18:41
PROVIDERS: ADMIT Internal Medicine; ATTEND Internal Medicine
PROC: 5A1D00Z (ICD-10-PCS; principal; 2016-07-25)
DX: I12.0 Hypertensive chronic kidney disease with stage 5 chronic kidney disease or end stage renal disease (principal); N18.6 End stage renal disease; G93.41 Metabolic encephalopathy; I16.1 Hypertensive emergency; T88.3XXA Malignant hyperthermia due to anesthesia, initial encounter; Z68.42 Body mass index [BMI] 45.0-49.9, adult; D63.1 Anemia in chronic kidney disease; E66.01 Morbid (severe) obesity due to excess calories; G44.201 Tension-type headache, unspecified, intractable; Z96.652 Presence of left artificial knee joint; J34.89 Other specified disorders of nose and nasal sinuses; Z88.8 Allergy status to other drugs, medicaments and biological substances; Z99.2 Dependence on renal dialysis; Z82.49 Family history of ischemic heart disease and other diseases of the circulatory system
CPT/HCPCS: 36415; 70450; 80048; 82140; 85025; 85027; 86140; 93005; 93010; 94660; 96374; 96375; J0360; J0780; J1170; J1200; J3360; J7030; Q0162

== ENCOUNTER 2016-08-21 04:26 | Inpatient (IN) | payer BC, MEDICARE ==
[2016-08-21 05:11] LABS: Basophils % (Auto) 0.5 % (0.0-1.8); Eosinophils % (Auto) 1.4 % (0.0-4.3); Hematocrit 31.6 % (35.5-45.6); Hemoglobin 10.2 gm/dl (11.8-15.2); Mean Corpuscular HGB Conc 32 % (32-34); Mean Corpuscular Hemoglobin 30 pg (28-32); Mean Corpuscular Volume 93 fl (84-94); Platelet Count 213 K/mm3 (140-440); Red Blood Count 3.39 M/mm3 (3.65-5.03); White Blood Count 12.1 K/mm3 (4.5-11.0)
[2016-08-21 05:19] LABS: Albumin/Globulin Ratio 1.1 %; BUN/Creatinine Ratio 2.66; Bilirubin,Total 0.2 mg/dL (0.1-1.2); Calcium 9.2 mg/dL (8.4-10.2); Chloride 91.6 mmol/L (98-107); Potassium 3.6 mmol/L (3.6-5.0); Total Protein 7.6 g/dL (6.3-8.2)
--- NOTE | 2016-08-21 12:05 | Emergency Department Report ---
ED General Adult HPI - General Chief complaint: Abdominal Pain Stated complaint: WEAKNESS Time Seen by Provider: 08/21/16 12:02 Source: patient, EMS Mode of arrival: Ambulatory Limitations: No Limitations - History of Present Illness Initial comments: The patient complains of abdominal pain, nausea, throwing up brown material and dark stool which is like diarrhea. He states the pain is an occasional "pain in the kidney". He states he's had this before. He denies any recent alcohol consumption, nonsteroidals or aspirin. He has no history of prior GI bleeding. He has had a recent hospitalization for encephalopathy secondary to Compazine. He is an end-stage renal failure patient on dialysis all well his chronic unit is in [place]. He reports no recent fever or chills. -: hour(s) Location: back Radiation: non-radiation Severity scale (0 -10): 4 Consistency: intermittent Improves with: none Worsens with: none Associated Symptoms: nausea/vomiting - Related Data Home Medications Medication Instructions Recorded Confirmed Last Taken Sevelamer Carbonate [Renvela] 800 mg PO TIDWM 07/24/16 07/24/16 Unknown Telmisartan [Micardis] 80 mg PO QDAY 07/24/16 07/24/16 Unknown Previous Rx's Medication Instructions Recorded Last Taken Type Azithromycin [Zithromax TAB] 250 mg PO QDAY #7 tablet 07/26/16 Unknown Rx Butalb/Acetamin/Caff 50-325-40 2 tab PO Q4H PRN #14 tablet 07/26/16 Unknown Rx [Fioricet] Fluticasone [Flonase] 100 mcg NS QDAY #1 bottle 07/26/16 Unknown Rx hydrALAZINE [Apresoline TAB] 50 mg PO Q8HR #30 tablet 07/26/16 Unknown Rx Allergies Allergy/AdvReac Type Severity Reaction Status Date / Time prochlorperazine Allergy Unknown Verified 07/24/16 19:59 [From Compazine] prochlorperazine edisylate Allergy Unknown Verified 07/24/16 19:59 [From Compazine] prochlorperazine maleate Allergy Unknown Verified 07/24/16 19:59 [From Compazine] ED Review of Systems ROS: Stated complaint: WEAKNESS Other details as noted in HPI Constitutional: weakness. denies: chills, fever Eyes: denies: eye pain, eye discharge, vision change ENT: denies: ear pain, throat pain Respiratory: shortness of breath. denies: cough, wheezing Cardiovascular: denies: chest pain, palpitations Endocrine: no symptoms reported Gastrointestinal: as per HPI, nausea, diarrhea Genitourinary: denies: urgency, dysuria Musculoskeletal: back pain. denies: joint swelling, arthralgia Skin: denies: rash, lesions Neurological: denies: headache, weakness, paresthesias Psychiatric: denies: anxiety, depression Hematological/Lymphatic: denies: easy bleeding, easy bruising ED Past Medical Hx - Past Medical History Previous Medical History?: Yes Hx Hypertension: Yes Hx Heart Attack/AMI: No Hx Congestive Heart Failure: No Hx Deep Vein Thrombosis: No Hx Pulmonary Embolism: No Hx Renal Disease: Yes (RF HD MWF) Hx Asthma: No Hx COPD: No Hx Tuberculosis: No Hx HIV: No Additional medical history: LUE HD access - Surgical History Past Surgical History?: Yes Hx Coronary Stent: No Additional Surgical History: Leftg Knee replacement 2010 - Social History Smoking Status: Never Smoker Substance Use Type: None - Medications Home Medications: Home Medications Medication Instructions Recorded Confirmed Last Taken Type Sevelamer Carbonate [Renvela] 800 mg PO TIDWM 07/24/16 07/24/16 Unknown History Telmisartan [Micardis] 80 mg PO QDAY 07/24/16 07/24/16 Unknown History Azithromycin [Zithromax TAB] 250 mg PO QDAY #7 tablet 07/26/16 Unknown Rx Butalb/Acetamin/Caff 50-325-40 2 tab PO Q4H PRN #14 tablet 07/26/16 Unknown Rx [Fioricet] Fluticasone [Flonase] 100 mcg NS QDAY #1 bottle 07/26/16 Unknown Rx hydrALAZINE [Apresoline TAB] 50 mg PO Q8HR #30 tablet 07/26/16 Unknown Rx ED Physical Exam - General Limitations: No Limitations General appearance: alert, in no apparent distress - Head Head exam: Present: atraumatic, normocephalic - Eye Eye exam: Present: normal appearance. Absent: scleral icterus - ENT ENT exam: Present: mucous membranes moist - Neck Neck exam: Present: normal inspection - Respiratory Respiratory exam: Present: normal lung sounds bilaterally. Absent: respiratory distress - Cardiovascular Cardiovascular Exam: Present: regular rate, normal rhythm. Absent: systolic murmur, diastolic murmur, rubs, gallop - GI/Abdominal GI/Abdominal exam: Present: soft, normal bowel sounds. Absent: distended, tenderness, guarding, rebound, rigid - Rectal Rectal exam: Present: heme (+) stool, bloody stool (a small amount of blood on rectal exam noted.) - Extremities Exam Extremities exam: Present: other (functional left arm dialysis AV fistula ) - Back Exam Back exam: Present: normal inspection - Neurological Exam Neurological exam: Present: alert, oriented X3 - Psychiatric Psychiatric exam: Present: normal affect, normal mood - Skin Skin exam: Present: warm, dry, intact, normal color. Absent: rash ED Course Vital Signs 08/21/16 08/21/16 04:32 11:15 Temperature 99.0 F 98.7 F Pulse Rate 89 85 Respiratory 18 18 Rate Blood Pressure 177/100 149/94 [Right] O2 Sat by Pulse 100 96 Oximetry - Reevaluation(s) Reevaluation #1: She has moved to the hospitalist service for further evaluation of GI bleeding. 08/21/16 12:46 ED Medical Decision Making - Lab Data Result diagrams: 08/21/16 04:44 08/21/16 04:44 Laboratory Results - last 24 hr 08/21/16 08/21/16 04:44 04:44 WBC 12.1 H RBC 3.39 L Hgb 10.2 L Hct 31.6 L MCV 93 MCH 30 MCHC 32 RDW 17.0 H Plt Count 213 Lymph % (Auto) 13.8 [place] % (Auto) 7.2 Eos % (Auto) 1.4 Baso % (Auto) 0.5 Lymph # 1.7 [place] # 0.9 H Eos # 0.2 Baso # 0.1 Seg Neutrophils % 77.1 H Seg Neutrophils # 9.3 H Sodium 139 Potassium 3.6 Chloride 91.6 L Carbon Dioxide 32 H Anion Gap 19 BUN 24 H Creatinine 9.0 H Estimated GFR 8 BUN/Creatinine Ratio 2.66 Glucose 116 H Calcium 9.2 Total Bilirubin 0.20 AST 26 ALT 21 Alkaline Phosphatase 58 Total Protein 7.6 Albumin 4.0 Albumin/Globulin Ratio 1.1 Lipase 15 - Radiology Data interpreted by me: Chest x-ray no acute process. Critical care attestation.: If time is entered above; I have spent that time in minutes in the direct care of this critically ill patient, excluding procedure time. ED Disposition Clinical Impression: End stage renal disease on dialysis, Anemia of renal disease GI bleeding Qualifiers: GI bleed type/associated pathology: unspecified gastrointestinal hemorrhage type Qualified Code(s): K92.2 - Gastrointestinal hemorrhage, unspecified Disposition: OP ADMITTED IP TO THIS HOSP Is pt being admited?: Yes Does the pt Need Aspirin: No (contraindicated GI bleeding) Condition: Stable Referrals: PRIMARY CARE, [Primary Care Provider] - 3-5 Days Time of Disposition: 12:52
[2016-08-21] MEDS ORDERED: PROTONIX IV ONE (12:22)
[2016-08-21] MEDS ORDERED: NORCO 5/325 PO ONE (12:38)
[2016-08-21] MEDS ORDERED: ZOFRAN ODT PO ONE (12:43)
--- NOTE | 2016-08-21 13:07 | XRay Report ---
AP CHEST : 08/21/16 04:26:00 CLINICAL: Hypertension. COMPARISON:None FINDINGS: Cardiomegaly and redistribution of pulmonary blood flow to the upper lobes. The lungs are normally expanded and clear. The bones and soft tissues are unremarkable. IMPRESSION: Cardiomegaly and pulmonary venous hypertension. No pulmonary edema.
--- NOTE | 2016-08-21 14:00 | History and Physical Report ---
History of Present Illness Date of admission: 08/21/16 12:53 Chief complaint: I have pain in my stomach History of present illness: 51 YO Male with HTN, ESRD on HD(M,W,F), Anemia presents to ED for evaluation. Pt states that he has experienced abdominal pain, nausea, and vomiting brown material and dark stool for the past 2 days with worsening symptoms over the past 3 hours. Pt denies fever, chills, CP, Syncope, Palpitations, recent ill contacts, foreign travel, ingestion of food or water from new or different sources, NSAID/or Aspirin Use. Past History Past Medical History: anemia, ESRD, hypertension Past Surgical History: total knee replacement Social history: single. denies: smoking, alcohol abuse, prescription drug abuse Family history: diabetes, hypertension Medications and Allergies Allergies Allergy/AdvReac Type Severity Reaction Status Date / Time prochlorperazine Allergy Unknown Verified 07/24/16 19:59 [From Compazine] prochlorperazine edisylate Allergy Unknown Verified 07/24/16 19:59 [From Compazine] prochlorperazine maleate Allergy Unknown Verified 07/24/16 19:59 [From Compazine] Home Medications Medication Instructions Recorded Confirmed Last Taken Type Sevelamer Carbonate [Renvela] 800 mg PO TIDWM 07/24/16 07/24/16 Unknown History Telmisartan [Micardis] 80 mg PO QDAY 07/24/16 07/24/16 Unknown History Azithromycin [Zithromax TAB] 250 mg PO QDAY #7 tablet 07/26/16 Unknown Rx Butalb/Acetamin/Caff 50-325-40 2 tab PO Q4H PRN #14 tablet 07/26/16 Unknown Rx [Fioricet] Fluticasone [Flonase] 100 mcg NS QDAY #1 bottle 07/26/16 Unknown Rx hydrALAZINE [Apresoline TAB] 50 mg PO Q8HR #30 tablet 07/26/16 Unknown Rx Review of Systems All systems: negative Gastrointestinal: abdominal pain, nausea, vomiting, diarrhea Exam - Constitutional Vitals: Temp Pulse Resp BP Pulse Ox 98.7 F 85 18 149/94 96 08/21/16 11:15 08/21/16 11:15 08/21/16 11:15 08/21/16 11:15 08/21/16 11:15 General appearance: Present: obese - EENT Eyes: Present: PERRL ENT: hearing intact, clear oral mucosa - Neck Neck: Present: supple, normal ROM - Respiratory Respiratory effort: normal Respiratory: bilateral: diminished - Cardiovascular Heart Sounds: Present: S1 & S2. Absent: rub, click - Extremities Extremities: pulses symmetrical, No edema Peripheral Pulses: within normal limits - Abdominal General gastrointestinal: Present: soft, non-tender, non-distended, normal bowel sounds Male genitourinary: Present: normal - Integumentary Integumentary: Present: clear, warm, dry - Musculoskeletal Musculoskeletal: gait normal, strength equal bilaterally - Psychiatric Psychiatric: appropriate mood/affect, intact judgment & insight - Neurologic Neurologic: CNII-XII intact, moves all extremities Results - Labs CBC & Chem 7: 08/21/16 04:44 08/21/16 04:44 Assessment and Plan - Patient Problems (1) GI bleeding Current Visit: Yes Status: Acute Qualifiers: GI bleed type/associated pathology: unspecified gastrointestinal hemorrhage type Gastritis type: G Qualified Code(s): K92.2 - Gastrointestinal hemorrhage, unspecified Plan to address problem: GI consulted, PPi therapy, serial hgb. HGB currently stable. No transfusion at this time. (2) Accelerated hypertension Current Visit: Yes Status: Acute Plan to address problem: Monitor bp q shift, continue current therapy. (3) End stage renal disease on dialysis Current Visit: Yes Status: Acute Plan to address problem: Nephrology consulted for dialysis, epogen as per renal team. (4) DVT prophylaxis Current Visit: Yes Status: Acute
[2016-08-21] MEDS ORDERED: TYLENOL PO PRN (14:03)
[2016-08-21] MEDS ORDERED: ZOFRAN IV PRN (14:03)
[2016-08-21] MEDS ORDERED: DULCOLAX PR PRN (14:03)
[2016-08-21] MEDS ORDERED: DUONEB 0.5 MG-3 MG/3 ML SOLN IH PRN (14:03)
[2016-08-21] MEDS ORDERED: MILK OF MAGNESIA PO PRN (14:03)
[2016-08-21] MEDS: RENVELA PO SCH (17:22)
--- NOTE | 2016-08-21 19:19 | Consultation ---
History of Present Illness - Reason for Consult Consult date: 08/21/16 Abd pain, GI bleed - History of Present Illness see dictated consult note Medications and Allergies Allergies Allergy/AdvReac Type Severity Reaction Status Date / Time prochlorperazine Allergy Unknown Verified 07/24/16 19:59 [From Compazine] prochlorperazine edisylate Allergy Unknown Verified 07/24/16 19:59 [From Compazine] prochlorperazine maleate Allergy Unknown Verified 07/24/16 19:59 [From Compazine] Home Medications Medication Instructions Recorded Confirmed Last Taken Type Sevelamer Carbonate [Renvela] 800 mg PO TIDWM 07/24/16 07/24/16 Unknown History Telmisartan [Micardis] 80 mg PO QDAY 07/24/16 07/24/16 Unknown History Azithromycin [Zithromax TAB] 250 mg PO QDAY #7 tablet 07/26/16 Unknown Rx Butalb/Acetamin/Caff 50-325-40 2 tab PO Q4H PRN #14 tablet 07/26/16 Unknown Rx [Fioricet] Fluticasone [Flonase] 100 mcg NS QDAY #1 bottle 07/26/16 Unknown Rx hydrALAZINE [Apresoline TAB] 50 mg PO Q8HR #30 tablet 07/26/16 Unknown Rx Active Meds: Active Medications Acetaminophen (Tylenol) 650 mg PO Q4H PRN PRN Reason: Pain MILD(1-3)/Fever >100.5/KLINE Albuterol/Ipratropium (Duoneb 0.5 Mg-3 Mg/3 Ml Soln) 1 ampul IH Q6HRT PRN PRN Reason: Wheezing Bisacodyl (Dulcolax) 10 mg MO QDAY PRN PRN Reason: Constipation unrelieved by MOM Hydralazine HCl (Apresoline) 50 mg PO Q8HR [facility] Losartan Potassium (Cozaar) 50 mg PO QDAY [facility] Magnesium Hydroxide (Milk Of Magnesia) 30 ml PO Q4H PRN PRN Reason: Constipation Ondansetron HCl (Zofran) 4 mg IV Q8H PRN PRN Reason: N/V unrelieved by Reglan Pantoprazole Sodium (Protonix) 40 mg IV BID ALFONZO Sevelamer Carbonate (Renvela) 800 mg PO TIDWM [facility] Last Admin: 08/21/16 17:22 Dose: 800 mg Exam - Constitutional Vitals: Temp Pulse Resp BP Pulse Ox 98.8 F 90 20 132/64 98 08/21/16 16:50 08/21/16 18:54 08/21/16 18:54 08/21/16 16:50 08/21/16 18:54 Results - Labs CBC & Chem 7: 08/21/16 04:44 08/21/16 04:44 Assessment and Plan Pt on HD for ESRD due to FSG, admitted with 3-4 d hx of diarrhea with loose BMs 10-15x/d, with abd discomfort, andrés with po intake. Pt had recent abx. Rectal - light yellowish liquid stool Imp - ?colitis, r/o PUD and biliary colic Plan - stool studies - GB ultrasound - empiric PPI
[2016-08-21] MEDS ORDERED: PROVENTIL IH PRN (20:30)
--- NOTE | 2016-08-21 20:56 | Consultation ---
REFERRING PHYSICIAN: Melecio Geiger MD REASON FOR CONSULTATION: GI bleed. HISTORY: The patient is a 51-year-old man who has end-stage renal disease secondary to FSG, and has been on hemodialysis since 12/2013. He was recently hospitalized from July 24 to July 26, for headache, amongst other medications, he was discharged on Zithromax. He was well until approximately 3 or 4 days ago when he noted onset of epigastric discomfort with p.o. intake with nausea. He denies vomiting though there is a report in the ER note that he vomited up some brownish material. He does complain of diarrhea for the last 3 days with some loose bowel movements up to 10 times to 15 times a day. He says previously, his bowel movements have been on a b.i.d. basis. He does also complain of night sweats over the last several weeks. He notes that his epigastric discomfort is worse with p.o. intake. He presented to the Emergency Room and he was found to have small amount of bright red blood on glove and therefore, admitted for evaluation with hemoglobin of 10, which is stable compared to his hemoglobin earlier in the month. The patient denies headaches or visual changes. He states he had a colonoscopy in March 2016 that was normal. He denies history of peptic ulcer disease. ALLERGIES: He has an allergy to COMPAZINE. MEDICATIONS: At home, he is on hydralazine, Micardis, Renvela, Flonase, and Fioricet. PAST MEDICAL HISTORY: He has a history of, 1. End-stage renal disease - on hemodialysis. 2. Hypertension. 3. Sleep apnea - on CPAP. FAMILY HISTORY: Noncontributory. SOCIAL HISTORY: Negative for tobacco or ethanol usage. He was in the and disabled out of it because of the end-stage renal disease. REVIEW OF SYSTEMS: As above, otherwise noncontributory. PHYSICAL EXAMINATION: GENERAL: This is a morbidly obese, middle-aged black male sitting up in bed. VITAL SIGNS: Temperature is 98.8, pulse 90, blood pressure 132/64. He is anicteric. HEENT: Pupils are round and reactive. Oropharynx was not examined due to the CPAP mask being on. LUNGS: Clear to auscultation. CARDIAC: Examination is regular with no extra heart sounds. ABDOMEN: Obese, but soft with good bowel sounds and no organomegaly or tenderness to deep palpation. RECTAL: Examination reveals lax anal sphincter and light yellowish mushy stool that is mucousy with no blood noted. EXTREMITIES: Reveal 1-2+ edema. NEUROLOGIC: He is alert, oriented x 3, grossly nonfocal. LABORATORY DATA: White count is 12.1, hemoglobin 10.2, hematocrit 31.6, MCV of 93, platelet count of 213,000. Sodium 139, potassium 3.6, chloride 92, bicarbonate 32, BUN 24, creatinine 9.0, glucose 116, AST is 26, ALT is 21, alkaline phosphatase is 58. Total bilirubin is 0.2, albumin is 4.0, lipase is 15. IMPRESSION: 1. Abdominal pain/diarrhea - findings could be due to infectious colitis or possibly even Clostridium colitis. We will certainly check stool studies and empirically start on Flagyl. With the upper gastrointestinal symptoms, other possibilities include peptic ulcer disease and biliary dyskinesia. We would also check gallbladder ultrasound and initiate oral proton pump inhibitors. If the patient fails to improve, further evaluation as directed by clinical course. 2. End-stage renal disease - Per hospitalist. JOB# [id number] HRC/NTS
[2016-08-21] MEDS: PROTONIX IV SCH (22:51)
[2016-08-21] MEDS: APRESOLINE PO SCH (22:51)
[2016-08-21] MEDS ORDERED: DILAUDID IM PRN (23:18)
[2016-08-22] MEDS ORDERED: TORADOL IV PRN (04:53)
[2016-08-22] MEDS: APRESOLINE PO SCH ×3 (05:27→22:02)
--- NOTE | 2016-08-22 06:55 | Consultation ---
History of Present Illness - Reason for Consult Consult date: 08/22/16 end stage renal disease - History of Present Illness Patient is a 51-year-old AAM with history significant for Morbid Obesity, Hypertension, Anemia and ESRD on hemodialysis (MWF) came to the hospital with 2 days h/o abdominal pain, nausea and dark stools. Vomitus contain brown colored material. Patient also reports having abd. discomfort. His symptoms are better since admission. Pt denies vomiting, fever, chills, CP, Syncope, Palpitations, ingestion of food or water from new or different sources, NSAID/ or Aspirin Use. He gets hemodialysis at [facility]. Past History Past Medical History: anemia, ESRD, hypertension Past Surgical History: total knee replacement Social history: single. denies: smoking, alcohol abuse, prescription drug abuse Family history: diabetes, hypertension Medications and Allergies Allergies Allergy/AdvReac Type Severity Reaction Status Date / Time prochlorperazine Allergy Unknown Verified 07/24/16 19:59 [From Compazine] prochlorperazine edisylate Allergy Unknown Verified 07/24/16 19:59 [From Compazine] prochlorperazine maleate Allergy Unknown Verified 07/24/16 19:59 [From Compazine] Home Medications Medication Instructions Recorded Confirmed Last Taken Type Sevelamer Carbonate [Renvela] 800 mg PO TIDWM 07/24/16 07/24/16 Unknown History Telmisartan [Micardis] 80 mg PO QDAY 07/24/16 07/24/16 Unknown History Azithromycin [Zithromax TAB] 250 mg PO QDAY #7 tablet 07/26/16 Unknown Rx Butalb/Acetamin/Caff 50-325-40 2 tab PO Q4H PRN #14 tablet 07/26/16 Unknown Rx [Fioricet] Fluticasone [Flonase] 100 mcg NS QDAY #1 bottle 07/26/16 Unknown Rx hydrALAZINE [Apresoline TAB] 50 mg PO Q8HR #30 tablet 07/26/16 Unknown Rx Active Meds: Active Medications Acetaminophen (Tylenol) 650 mg PO Q4H PRN PRN Reason: Pain MILD(1-3)/Fever >100.5/KLINE Albuterol (Proventil) 2.5 mg IH Q6HRT PRN PRN Reason: Wheezing Bisacodyl (Dulcolax) 10 mg [place] QDAY PRN PRN Reason: Constipation unrelieved by MOM Hydralazine HCl (Apresoline) 50 mg PO Q8HR [facility] Last Admin: 08/22/16 05:27 Dose: 50 mg Ketorolac Tromethamine (Toradol) 30 mg IV Q6H PRN PRN Reason: Pain, Moderate (4-6) Stop: 08/27/16 04:52 Last Admin: 08/22/16 05:21 Dose: 30 mg Losartan Potassium (Cozaar) 50 mg PO QDAY [facility] Magnesium Hydroxide (Milk Of Magnesia) 30 ml PO Q4H PRN PRN Reason: Constipation Ondansetron HCl (Zofran) 4 mg IV Q8H PRN PRN Reason: N/V unrelieved by Reglan Pantoprazole Sodium (Protonix) 40 mg IV BID [facility] Last Admin: 08/21/16 22:51 Dose: 40 mg Sevelamer Carbonate (Renvela) 800 mg PO TIDWM [facility] Last Admin: 08/21/16 17:22 Dose: 800 mg Review of Systems Constitutional: anorexia, fatigue, poor appetite, no weight loss, no weight gain , no fever, no chills, no weakness, no chronic pain Ears, nose, mouth and throat: no sinus pain, no epistaxis Cardiovascular: high blood pressure, leg edema, no chest pain, no orthopnea, no palpitations, no syncope, no lightheadedness, no shortness of breath Respiratory: no cough, no hemoptysis, no shortness of breath, no dyspnea on exertion Gastrointestinal: abdominal pain, nausea, diarrhea, BRBPR, melena Genitourinary Male: no dysuria, no hematuria Rectal: no bleeding Musculoskeletal: no gait dysfunction, no frequent falls Integumentary: no rash, no sores, no wounds Neurological: no paralysis, no weakness, no syncope Psychiatric: change in appetite, disorientation, no memory loss Endocrine: no weight change Hematologic/Lymphatic: no easy bruising Exam - Vital Signs Vital signs: Vital Signs Temp Pulse Resp BP Pulse Ox 99.0 F 89 18 177/100 100 08/21/16 04:32 08/21/16 04:32 08/21/16 04:32 08/21/16 04:32 08/21/16 04:32 - General Appearance General appearance: well-developed, well-nourished, appears stated age, obese, other (no distress) EENT: ATNC, PERRL, mucous membranes moist, hearing intact, vision intact Neck: Present: neck supple, trachea midline Respiratory: Clear to Ascultation Heart: regular, S1S2, no murmurs Gastrointestinal: Present: normoactive bowel sounds, obese. Absent: tenderness , distended Integumentary: no rash Neurologic: no focal deficit, no asterixis, alert and oriented x3, CN 3-12 intact Musculoskeletal: Present: other (trace pedal edema, left arm AVF) Psychiatric: mood/affect appropriate, cooperative Results - Lab Results 08/21/16 04:44 08/21/16 04:44 Most recent lab results Calcium 9.2 mg/dL (8.4-10.2) 08/21/16 04:44 Assessment and Plan - Patient Problems (1) End stage renal disease on dialysis Current Visit: Yes Status: Chronic Plan to address problem: [place] [facility] [place] for [place]. (2) GI bleeding Current Visit: Yes Status: Acute Qualifiers: GI bleed type/associated pathology: unspecified gastrointestinal hemorrhage type Gastritis type: G Qualified Code(s): K92.2 - Gastrointestinal hemorrhage, unspecified Plan to address problem: GI consulted. (3) Anemia of renal disease Current Visit: Yes Status: Chronic Plan to address problem: Epogen as needed. (4) HTN (hypertension) Current Visit: No Status: Chronic Qualifiers: Hypertension type: renovascular hypertension Qualified Code(s): I15.0 - Renovascular hypertension Plan to address problem: BP well controlled.
--- NOTE | 2016-08-22 08:10 | Admit Criteria Form ---
Admission Criteria Documentation: RENAL FAILURE, CHRONIC Clinical Indications for Admission to Inpatient Care (Place 'X' for any and all applicable criteria): Admission is indicated for ANY ONE of the following (1)(2)(3)(4)(5): [X]I. Inpatient admission required rather than observation care (Use Renal Failure, Chronic: Observation Care Criteria as appropriate) because of ANY ONE of the following: [ ]a) Volume overload or uremic symptoms (eg, clinically significant pulmonary edema, hypertension, pericarditis, acidosis) too severe for, or not responsive (eg, for over 24 hours) to emergency department or observation care dialysis or treatment regimen (11) [ ]b) Hemodynamic instability that is severe or persistent [ ]c) Respiratory distress that is severe or persistent (11) [ ]d) Clinically significant electrolyte abnormality that requires inpatient care (eg,hyperkalemia with severe ECG findings)[B] [ ]e) Supplement O2 or respiratory therapy for over 24hrs that is performable only in acute inpatient setting [ ]f) Continuous IV infusion of anticoagulation, platelet inhibitor, vasoactive, or Antiarrhythmic medication (15), [ ]g) Pulmonary artery catheter monitoring [ ]h) Temporary pacemaker placement [ ]i) Emergent pericardiocentesis [X]j) Other condition, treatment or monitoring requiring inpatient admission [ ]II. Unexplained syncope [A] [ ]III. Recurrent seizures [ ]IV. Severe infections not treatable in outpatient setting (eg, peritonitis)(9 ) [ ]V. Cardiac arrhythmias of immediate concern [ ]. Encephalopathy [ ]VII.Bleeding abnormalities (eg, platelet dysfunction) with active (eg, gastrointestinal) bleeding Extended stay beyond goal length of stay may be needed for (3)(4)(35)(36): [ ]a) Continuing uremic complications [ ]b) Comorbidities or complications The original [employer] content created by [employer] has been revised. The portions of the content which have been revised are identified through the use of italic text or in bold, and [email or web address] has neither reviewed nor approved the modified material. All other unmodified content is copyright [employer]. Please see references footnoted in the original [facility] edition 2016 Admission Criteria Met: Yes
[2016-08-22] MEDS: RENVELA PO SCH ×3 (08:47→16:39)
[2016-08-22] MEDS: PROTONIX IV SCH ×3 (08:47→17:42)
--- NOTE | 2016-08-22 09:19 | Ultrasound Report ---
RIGHT UPPER QUADRANT ULTRASOUND: HISTORY: Epigastric abdominal pain, nausea. Technique: Transabdominal ultrasound imaging with Doppler interrogation. FINDINGS: The liver parenchyma is echogenic suggesting mild fatty infiltration or other parenchymal disease. There is no evidence for liver mass or surface nodularity. No perihepatic ascites. There may be trace sludge in the gallbladder but no evidence for shadowing stones, wall thickening, abnormal distention or surrounding fluid. The CBD measures 3.8 mm. The right kidney is severely atrophic and echogenic measuring 6 cm. The pancreas and visualized aorta are unremarkable. IMPRESSION: Slightly echogenic liver consistent with mild fatty infiltration. Trace sludge in the gallbladder. Severely atrophic right kidney.
[2016-08-22] MEDS ORDERED: NACL 0.9% 100 ML IV PRN (09:43)
[2016-08-22] MEDS ORDERED: NON-FORMULARY (Telmisartan [Micardis] 80 MG) PO SCH (10:00)
[2016-08-22] MEDS ORDERED: NACL 0.9 (PRIMING MACHINE ONLY DIALYSIS) MC ONE (13:10)
--- NOTE | 2016-08-22 14:23 | Progress Note ---
Assessment and Plan Assessment and plan: Patient is a 51-year-old man history of sleep apnea on CPAP, end-stage renal disease hemodialysis Monday, hypertension and GERD who presents with diarrhea, nausea vomiting. Abdominal ultrasound shows sludge in gallbladder, mild fatty liver, severe atrophic kidneys bilaterally. -Diarrhea question of colitis, stool cultures and C. difficile was ordered but uncollected. I have spoken to the nurse to collect stool which shouldn't be a problem if patient truly has 10-15 loose stools/day. -?GIB, monitor h/h closely -Stage renal disease needing hemodialysis: Renal is following -GERD: PPI -Acute on chronic anemia due to renal disease -DVT prophylaxis: SCDs only due to history of vomiting blood and blood in stool -Disposition: If H&H stable discharge tomorrow Full code History Interval history: Patient seen and examined. Follow up on diarrhea. Patient states several stool 10-15 times prior to admission. There is a question of vomiting blood. ? question of bright red blood per rectum on gloves; however, GI, Dr. Cordon, evaluated him and he did not have any evidence of GI bleed. Overnight uneventful. No cp, sob, n/v or severe headaches. Imaging, old records, testing, labs, nursing notes reviewed. Hospitalist Physical - Physical exam Narrative exam: GEN: WDWN, NAD, AWAKE, ALERT, ORIENTATED 3 CVS: RRR, NORMAL S1S2 LUNGS/CHEST: CTA B, NORMAL CHEST EXPANSION B, GOOD AIR ENTRY B ABD: SOFT NTND, GBS, NO REBOUND OR GUARDING EXT/SKIN: NO SIGNIFICANT EDEMA OR RASH MSK: FROM X 4 EXTREMITIES NEURO: CN 2-12 GROSSLY INTACT, NO new FOCAL DEFICITS PSY: CALM - Constitutional Vitals: Temp Pulse Resp BP Pulse Ox 98.2 F 70 20 155/83 97 08/22/16 11:10 08/22/16 13:30 08/22/16 11:10 08/22/16 13:30 08/22/16 08:21 General appearance: Present: obese Results - Labs CBC & Chem 7: 08/21/16 04:44 08/21/16 04:44 Labs: Laboratory Last Values WBC 12.1 K/mm3 (4.5-11.0) H 08/21/16 04:44 RBC 3.39 M/mm3 (3.65-5.03) L 08/21/16 04:44 Hgb 10.2 gm/dl (11.8-15.2) L 08/21/16 04:44 Hct 31.6 % (35.5-45.6) L 08/21/16 04:44 MCV 93 fl (84-94) 08/21/16 04:44 MCH 30 pg (28-32) 08/21/16 04:44 MCHC 32 % (32-34) 08/21/16 04:44 RDW 17.0 % (13.2-15.2) H 08/21/16 04:44 Plt Count 213 K/mm3 (140-440) 08/21/16 04:44 Lymph % (Auto) 13.8 % (13.4-35.0) 08/21/16 04:44 [place] % (Auto) 7.2 % (0.0-7.3) 08/21/16 04:44 Eos % (Auto) 1.4 % (0.0-4.3) 08/21/16 04:44 Baso % (Auto) 0.5 % (0.0-1.8) 08/21/16 04:44 Lymph # 1.7 K/mm3 (1.2-5.4) 08/21/16 04:44 [place] # 0.9 K/mm3 (0.0-0.8) H 08/21/16 04:44 Eos # 0.2 K/mm3 (0.0-0.4) 08/21/16 04:44 Baso # 0.1 K/mm3 (0.0-0.1) 08/21/16 04:44 Seg Neutrophils % 77.1 % (40.0-70.0) H 08/21/16 04:44 Seg Neutrophils # 9.3 K/mm3 (1.8-7.7) H 08/21/16 04:44 Sodium 139 mmol/L (137-145) 08/21/16 04:44 Potassium 3.6 mmol/L (3.6-5.0) 08/21/16 04:44 Chloride 91.6 mmol/L (98-107) L 08/21/16 04:44 Carbon Dioxide 32 mmol/L (22-30) H 08/21/16 04:44 Anion Gap 19 mmol/L 08/21/16 04:44 BUN 24 mg/dL (9-20) H 08/21/16 04:44 Creatinine 9.0 mg/dL (0.8-1.5) H 08/21/16 04:44 Estimated GFR 8 ml/min 08/21/16 04:44 BUN/Creatinine Ratio 2.66 % 08/21/16 04:44 Glucose 116 mg/dL (75-100) H 08/21/16 04:44 Calcium 9.2 mg/dL (8.4-10.2) 08/21/16 04:44 Total Bilirubin 0.20 mg/dL (0.1-1.2) 08/21/16 04:44 AST 26 units/L (5-40) 08/21/16 04:44 ALT 21 units/L (7-56) 08/21/16 04:44 Alkaline Phosphatase 58 units/L (35-129) 08/21/16 04:44 Total Protein 7.6 g/dL (6.3-8.2) 08/21/16 04:44 Albumin 4.0 g/dL (3.9-5) 08/21/16 04:44 Albumin/Globulin Ratio 1.1 % 08/21/16 04:44 Lipase 15 units/L (13-60) 08/21/16 04:44 - Imaging and Cardiology Abdominal x-ray: other (abdominal ultrasound)
--- NOTE | 2016-08-22 15:52 | Progress Note ---
Assessment and Plan 1. Epigastric pain - etiology unclear. U/S shows sludge in GB, no inflammation. Colitis clinically better. On PPI. - will do EGD to exclude PUD - then, CT to assess pancreas, etc - if negative, and has worse pain with po intake, HIDA with CCK Subjective Date of service: 08/22/16 Interval history: Diarrhea improved, with 1 solid BM this AM, and 1 small loose BM this afternoon. Abd pain persists, unabated. No N/V. Objective - Constitutional Vitals: Vital Signs - 12hr 08/22/16 08/22/16 08/22/16 05:27 08:21 11:00 Temperature 98.8 F Pulse Rate 86 72 Pulse Rate [ 84 Left Radial] Respiratory 20 Rate Blood Pressure 177/91 159/89 Blood Pressure 144/86 [Left Arm] O2 Sat by Pulse 97 Oximetry 08/22/16 08/22/16 08/22/16 11:10 11:15 11:16 Temperature 98.2 F Pulse Rate 82 72 81 Pulse Rate [ Left Radial] Respiratory 20 Rate Blood Pressure 162/92 163/85 164/90 Blood Pressure [Left Arm] O2 Sat by Pulse Oximetry 08/22/16 08/22/16 08/22/16 11:30 11:45 12:00 Temperature Pulse Rate 71 74 64 Pulse Rate [ Left Radial] Respiratory Rate Blood Pressure 172/90 167/93 158/80 Blood Pressure [Left Arm] O2 Sat by Pulse Oximetry 08/22/16 08/22/16 08/22/16 12:15 12:30 12:45 Temperature Pulse Rate 60 60 64 Pulse Rate [ Left Radial] Respiratory Rate Blood Pressure 157/81 147/80 170/94 Blood Pressure [Left Arm] O2 Sat by Pulse Oximetry 08/22/16 08/22/16 08/22/16 13:00 13:15 13:30 Temperature Pulse Rate 75 66 70 Pulse Rate [ Left Radial] Respiratory Rate Blood Pressure 167/97 146/86 155/83 Blood Pressure [Left Arm] O2 Sat by Pulse Oximetry 08/22/16 08/22/16 08/22/16 13:45 14:00 14:20 Temperature Pulse Rate 64 71 70 Pulse Rate [ Left Radial] Respiratory Rate Blood Pressure 147/84 164/84 156/92 Blood Pressure [Left Arm] O2 Sat by Pulse Oximetry 08/22/16 14:35 Temperature 98.1 F Pulse Rate 70 Pulse Rate [ Left Radial] Respiratory 18 Rate Blood Pressure 156/92 Blood Pressure [Left Arm] O2 Sat by Pulse Oximetry General appearance: Present: mild distress - EENT Eyes: PERRL, EOM intact ENT: hearing intact - Respiratory Respiratory effort: normal - Gastrointestinal General gastrointestinal: Present: soft, tender (Mild, epigastric), normal bowel sounds - Labs CBC & Chem 7: 08/21/16 04:44 08/21/16 04:44
[2016-08-22] MEDS: MORPHINE IV PRN ×2 (16:47→20:58)
[2016-08-22] MEDS: COZAAR PO SCH (16:51)
[2016-08-23] MEDS: MORPHINE IV PRN ×2 (03:36→08:03)
[2016-08-23] MEDS: APRESOLINE PO SCH ×2 (06:16→17:06)
[2016-08-23 06:41] LABS: Hematocrit 30.7 % (35.5-45.6); Hemoglobin 9.9 gm/dl (11.8-15.2); Mean Corpuscular HGB Conc 32 % (32-34); Mean Corpuscular Hemoglobin 31 pg (28-32); Mean Corpuscular Volume 94 fl (84-94); Platelet Count 195 K/mm3 (140-440); Red Blood Count 3.25 M/mm3 (3.65-5.03); Red Cell Distribution Width 16.9 % (13.2-15.2); White Blood Count 11.3 K/mm3 (4.5-11.0)
[2016-08-23 06:56] LABS: BUN/Creatinine Ratio 2.52; Chloride 94.7 mmol/L (98-107); Potassium 3.6 mmol/L (3.6-5.0)
--- NOTE | 2016-08-23 06:56 | Progress Note ---
Assessment and Plan - Patient Problems (1) End stage renal disease on dialysis Status: Chronic Plan to address problem: Continue hemodialysis three times a week on MWFs. Last dialyzed yesterday. (2) GI bleeding Status: Acute Plan to address problem: Scheduled to get EGD today. (3) Anemia of renal disease Status: Chronic Plan to address problem: Epogen as needed. (4) HTN (hypertension) Status: Chronic Plan to address problem: BP is fair. Subjective Date of service: 08/23/16 Interval history: Patient is feeling better today. Objective - Vital Signs Vital signs: Vital Signs - 12hr 08/22/16 08/22/16 08/22/16 20:00 22:00 22:02 Temperature Pulse Rate 100 H Pulse Rate [ 100 H Left Radial] Pulse Rate [ Right Radial] Respiratory 20 Rate Blood Pressure 140/85 Blood Pressure [Right Arm] O2 Sat by Pulse 95 96 Oximetry 08/22/16 08/22/16 08/23/16 22:28 23:04 06:16 Temperature 99.9 F H Pulse Rate 87 81 Pulse Rate [ Left Radial] Pulse Rate [ 90 Right Radial] Respiratory 19 20 Rate Blood Pressure 167/91 Blood Pressure 161/78 [Right Arm] O2 Sat by Pulse 97 95 Oximetry - General Appearance General appearance: well-developed, well-nourished, appears stated age, obese, other (no distress) EENT: ATNC, PERRL, mucous membranes moist, hearing intact, vision intact Neck: supple Respiratory: Present: Clear to Ascultation Cardiology: regular, S1S2, no murmurs Gastrointestinal: normoactive bowel sounds, no tenderness, no distended, obese Integumentary: no rash Neurologic: no focal deficit, no asterixis, alert and oriented x3, CN 3-12 intact Musculoskeletal: other (trace pedal edema noted) Psychiatric: mood/affect appropriate, cooperative - Lab 08/23/16 05:22 08/23/16 05:22 Most recent lab results Calcium 9.0 mg/dL (8.4-10.2) 08/23/16 05:22
[2016-08-23] MEDS: RENVELA PO SCH ×3 (08:02→17:06)
[2016-08-23] MEDS: COZAAR PO SCH ×2 (08:03→10:03)
[2016-08-23] MEDS ORDERED: APRESOLINE IV PRN (08:33)
[2016-08-23] MEDS: PROTONIX IV SCH (10:04)
--- NOTE | 2016-08-23 13:40 | Anesthesia Consultation ---
Anesthesia Consult and Med Hx - Airway Anesthetic Teeth Evaluation: Good ROM Head & Neck: Adequate Mental/Hyoid Distance: Adequate Mallampati Class: Class III Intubation Access Assessment: Difficult - Pulmonary Exam CTA: Yes - Cardiac Exam Cardiac Exam: RRR - Pre-Operative Health Status ASA Pre-Surgery Classification: ASA3 Proposed Anesthetic Plan: MAC - Pulmonary Hx Smoking: No Hx Asthma: No COPD: No Hx Pneumonia: No - Cardiovascular System Hx Hypertension: Yes Hx Coronary Artery Disease: No Hx Heart Attack/AMI: No Hx Angina: No Hx Heart Murmur: No - Central Nervous System Hx Psychiatric Problems: No - Endocrine Hx Renal Disease: Yes (RF HD MWF) Hx End Stage Renal Disease: Yes - Other Systems Hx Cancer: No Hx Obesity: Yes ([place])
--- NOTE | 2016-08-23 13:45 | Anesthesia Day of Surgery ---
Anesthesia Day of Surgery - Day of Surgery Patient Examined: Yes Patient H&P Reviewed: Yes Patient is NPO: Yes
[2016-08-23] MEDS ORDERED: NACL 0.9% 1000 ML 1,000 ML IV SCH (14:00)
[2016-08-23] MEDS ORDERED: WATER FOR IRRIG STERILE IR ONE (14:01)
[2016-08-23] MEDS ORDERED: DIPRIVAN 10 MG/ML IV ONE ×2 (14:27)
--- NOTE | 2016-08-23 14:52 | Post Operative Note ---
Pre-op diagnosis: Abd pain, N/V Post-op diagnosis: other (Pyloric channel ulcer) Findings: 1. Small pyloric channel ulcer with white base. 2. Otherwise normal EGD. Procedure: EGD Anesthesia: MAC Surgeon: CRISTIAN BOX Estimated blood loss: none Pathology: none Condition: stable Disposition: floor (Adv diet, and D/C if nicanor well, on chronic PPI. F/u as outpatient in 3-4 wks.)
--- NOTE | 2016-08-23 15:40 | Discharge Summary ---
Providers - Providers Date of Admission: 08/21/16 12:53 Date of discharge: 08/23/16 Attending physician: GUS CAN MD 08/21/16 14:06 Consult to Physician [CONS] Routine Consulting Provider: CRISTIAN BOX Reason For Exam: gi bleeding Place consult to:: gi bleed/DR. BOX Notified:: [facility] Phone number called:: [phone] Was contact made?: Yes If yes, spoke with:: HATTIE Time called:: 14:50 Comment:: HARDY NOTIFROBINSON Consult to Physician [CONS] Routine Consulting Provider: JOANNE LEAL I Reason For Exam: esrd Place consult to:: nephrology/ Notified:: [facility] Phone number called:: [phone] Was contact made?: Yes If yes, spoke with:: NILDA Time called:: 14:53 Comment:: HARDY NOTIFIED Primary care physician: [employer] Hospitalization Reason for admission: Nausea, vomiting diarrhea Condition: Stable Hospital course: Patient is a 51-year-old man history of sleep apnea on CPAP, end-stage renal disease hemodialysis Monday, hypertension and GERD who presents with diarrhea, nausea vomiting. Current history patient was haven't sent to 15 loose stools per day this resolved. Initial order for C. difficile was not carried out because the stools had resolved to formed. Patient did not demonstrate any fever at this point. He did proceed to have an endoscopy which revealed multiple pyloric channel ulcer with white base no acute bleeding noted. Hemoglobin remained stable. Abdominal ultrasound shows sludge in gallbladder, mild fatty liver, severe atrophic kidneys bilaterally. He is tolerating diet today and is stable for discharge to follow with GI outpatient and will be started on pantoprazole 20 mg daily. Extensive weight loss management discussion was had with the patient who verbalized understanding Discharge diagnosis -Acute colitis -Pyloric ulcer -HTN urgency -Obstructive sleep apnea -ENDStage renal disease needing hemodialysis: -GERD -Acute on chronic anemia due to renal disease -Morbid obesity BMI 49 Disposition: DISCHARGED TO HOME OR SELFCARE Time spent for discharge: 35 min Core Measure Documentation - Palliative Care Palliative Care/ Comfort Measures: Not Applicable - Core Measures Any of the following diagnoses?: none - VTE Discharge Requirements Deep Vein Thrombosis/Pulmonary Embolism Present on Admission: No Exam - Physical Exam Narrative exam: VITAL SIGNS: Reviewed. GENERAL: The patient appeared well nourished and normally developed. Vital signs as documented. HEAD: No signs of head trauma. EYES: Pupils are equal. Extraocular motions intact. EARS: Hearing grossly intact. MOUTH: Oropharynx is normal. NECK: No adenopathy, no JVD. CHEST: Chest with clear breath sounds bilaterally. No wheezes, rales, or rhonchi. CARDIAC: Regular rate and rhythm. S1 and S2, without murmurs, gallops, or rubs. VASCULAR: No Edema. Peripheral pulses normal and equal in all extremities. ABDOMEN: Soft, without detectable tenderness. No sign of distention. No rebound or guarding, and no masses palpated. Bowel Sounds normal. MUSCULOSKELETAL: Good range of motion of all major joints. Extremities without clubbing, cyanosis or edema. NEUROLOGIC EXAM: Alert and oriented x 3. No focal sensory or strength deficits. Speech normal. Follows commands. PSYCHIATRIC: Mood normal. SKIN: No rash or lesions. - Constitutional Vitals: Temp Pulse Resp BP Pulse Ox 98.7 F 87 21 121/70 93 08/23/16 14:49 08/23/16 15:04 08/23/16 15:04 08/23/16 15:04 08/23/16 15:04 Plan Activity: advance as tolerated, fall precautions Diet: renal Special Instructions: record daily BP diary Follow up with: DYLON BERG MD [Primary Care Provider] - 3-5 Days CRISTIAN BOX MD [Staff Physician] - 09/13/16 IAN FALCON MD [Staff Physician] - 7 Days Prescriptions: Pantoprazole [Protonix TAB] 20 mg PO DAILY #30 tablet.
[2016-08-23 17:07] VITALS: BP 140/80
--- NOTE | 2016-08-23 17:12 | Post Anesthesia Evaluation ---
- Post Anesthesia Evaluation Patient Participated: Yes Airway Patent: Yes Stable Respiratory Function: Yes Nausea/Vomiting: No Temp > 96.8F: Yes Pain Manageable: Yes Adequeate Hydration: Yes Anesthesia Complications: No
--- NOTE | 2016-08-23 21:26 | Operative Report ---
PROCEDURE: Upper endoscopy. PREOPERATIVE DIAGNOSIS: Epigastric pain. POSTOPERATIVE DIAGNOSIS: Pyloric channel ulcers. SEDATION: MAC by Anesthesia. HISTORY: The patient is a 51-year-old man with end-stage renal disease on hemodialysis, who complains of epigastric pain. He had a gallbladder ultrasound done today, which showed some sludge in the gallbladder and fatty liver, but otherwise normal. Procedure, indications, risks, and benefits were explained and consent was obtained. DESCRIPTION OF PROCEDURE: The patient was placed in left lateral decubitus position and sedated. [employer] video upper endoscope was passed through the mouth and oropharynx and into the descending duodenum. Scope was then gradually withdrawn with close inspection of mucosa. FINDINGS: 1. Normal-appearing esophagus with sharp Z-line located at 40 cm from the incisors. 2. Normal-appearing gastric antrum, fundus, body, and cardia. 3. Small 6-7 mm white-based ulcer noted in the pyloric channel along the superior aspect. There was no stigmata of bleeding. 4. Normal-appearing duodenal bulb and duodenum. The patient tolerated the procedure well without immediate complications. IMPRESSION: 1. Pyloric channel ulcer. 2. Otherwise, normal upper endoscopy. PLAN: 1. Continue chronic proton pump inhibitors for now. 2. Check H. pylori antibody as outpatient. 3. Advance diet and discharge to home if does well. It has ongoing pain, proceed with a HIDA scan with CCK. JOB# [id number] HRC/NTS
== END 2016-08-23 18:50 | disposition home health service (06) | DRG 391 ==
LOC: ED 04:26 → 3A 12:53
PROVIDERS: ADMIT Internal Medicine; ATTEND Internal Medicine
PROC: 5A1D60Z (ICD-10-PCS; 2016-08-22)
PROC: 0DJ08ZZ Inspection of Upper Intestinal Tract, Via Natural or Artificial Opening Endoscopic (ICD-10-PCS; principal; 2016-08-23)
DX: K52.9 Noninfective gastroenteritis and colitis, unspecified (principal); N18.6 End stage renal disease; I12.0 Hypertensive chronic kidney disease with stage 5 chronic kidney disease or end stage renal disease; Z68.42 Body mass index [BMI] 45.0-49.9, adult; Z96.652 Presence of left artificial knee joint; D63.1 Anemia in chronic kidney disease; E66.01 Morbid (severe) obesity due to excess calories; K21.9 Gastro-esophageal reflux disease without esophagitis; K25.9 Gastric ulcer, unspecified as acute or chronic, without hemorrhage or perforation; Z88.8 Allergy status to other drugs, medicaments and biological substances; Z99.2 Dependence on renal dialysis; Z83.3 Family history of diabetes mellitus; Z82.49 Family history of ischemic heart disease and other diseases of the circulatory system; Z71.3 Dietary counseling and surveillance
CPT/HCPCS: 36415; 71010; 76705; 80048; 80053; 83690; 85025; 85027; 93005; 93010; 94660; 96374; C9113; J1170; J1885; J2270; J2704; J7030; Q0162

== ENCOUNTER 2016-09-15 18:13 | Emergency (ER) | payer BC ==
[2016-09-15 18:36] VITALS: BP 159/85
[2016-09-15 18:56] LABS: Basophils % (Auto) 0.4 % (0.0-1.8); Eosinophils % (Auto) 1.9 % (0.0-4.3); Hematocrit 28.3 % (35.5-45.6); Hemoglobin 9.3 gm/dl (11.8-15.2); Mean Corpuscular HGB Conc 33 % (32-34); Mean Corpuscular Hemoglobin 31 pg (28-32); Mean Corpuscular Volume 94 fl (84-94); Platelet Count 209 K/mm3 (140-440); Red Cell Distribution Width 16.4 % (13.2-15.2)
[2016-09-15 19:13] LABS: BUN/Creatinine Ratio 3.82
[2016-09-15 19:14] LABS: Chloride 93.7 mmol/L (98-107); Potassium 3.8 mmol/L (3.6-5.0)
--- NOTE | 2016-09-16 07:24 | XRay Report ---
CHEST 2 VIEWS INDICATION: Shortness of breath. COMPARISON: 08/21/2016 FINDINGS: Frontal and lateral chest radiographs obtained with the patient in wheelchair and demonstrate stable mild exaggerated cardiomediastinal silhouette and somewhat crowded lung markings centrally/possible pulmonary hypertension. Lungs otherwise well expanded without pleural effusions or CHF. Various bony degenerative changes, including multilevel thoracic spondylosis. CONCLUSION: No significant interval change. Thank you for the opportunity to participate in this patient's care.
--- NOTE | 2016-09-19 19:15 | ED Elopement Review ---
ED Pt Elopement review - Results review Lab results: Laboratory Tests 09/15/16 09/15/16 18:41 18:41 WBC 9.0 RBC 3.00 L Hgb 9.3 L Hct 28.3 L MCV 94 MCH 31 MCHC 33 RDW 16.4 H Plt Count 209 Lymph % (Auto) 19.1 Hill % (Auto) 10.3 H Eos % (Auto) 1.9 Baso % (Auto) 0.4 Lymph # 1.7 Hill # 0.9 H Eos # 0.2 Baso # 0.0 Seg Neutrophils % 68.3 Seg Neutrophils # 6.1 Sodium 141 Potassium 3.8 Chloride 93.7 L Carbon Dioxide 36 H Anion Gap 15 BUN 26 H Creatinine 6.8 H Estimated GFR 10 BUN/Creatinine Ratio 3.82 Glucose 103 H Calcium 9.0 Troponin T 0.030 H NT-Pro-B Natriuret Pep 2088 H Triglycerides 121 Cholesterol 154 LDL Cholesterol Direct 85 HDL Cholesterol 45 Cholesterol/HDL Ratio 3.42 - Call Back decision Pt Call Back Decision: Call pt to return to ED STEPHEN (patient to return to ER for evaluation of chest pain, shortness of breath, elevated troponin, elevated bnp)
== END 2016-09-15 23:30 | disposition left against medical advice (07) ==
LOC: ED 18:13
DX: R06.02 Shortness of breath (principal); R07.9 Chest pain, unspecified; Z53.21 Procedure and treatment not carried out due to patient leaving prior to being seen by health care provider
CPT/HCPCS: 36415; 71020; 80048; 80061; 83880; 84484; 85025; 93005; 93010